=== PATIENT | male | born 1965 | race Hispanic/Latino ===

== ENCOUNTER 2018-09-17 13:54 | Emergency (ER) | payer OTHER, SELFPAY ==
--- NOTE | 2018-09-17 14:05 | Emergency Department Report ---
Blank Doc - Documentation Documentation: 53 year old male presents to ED c/o of SOB and Abdominal pain assoicated with dysuria. Also has large wound/ abscess to back and feels weak and light headed. Reports Cough and vomiting. Vision has been fading in and out for the last couple day too Plan Main side for evaluation Labs and possible CT
--- NOTE | 2018-09-17 14:32 | XRay Report ---
PROCEDURE: XR CHEST ROUTINE 2V TECHNIQUE: PA and lateral chest radiographs were obtained. HISTORY: Dyspnea COMPARISONS: None. FINDINGS: There is no visible pulmonary consolidation. No evidence of pneumothorax. No radiographically visible pleural effusion. Cardiac silhouette size is normal without vascular congestion. No visible acute displaced fracture in the regional skeleton. IMPRESSION: No acute cardiopulmonary disease in the visualized chest. This document is electronically signed by Christiano Javier MD., September 17 2018 02:30:46 PM ET
[2018-09-17 14:47] LABS: Basophils # (Auto) 0.1 K/mm3 (0.0-0.1); Basophils % (Auto) 0.7 % (0.0-1.8); Eosinophils # (Auto) 0.2 K/mm3 (0.0-0.4); Eosinophils % (Auto) 1.7 % (0.0-4.3); Hematocrit 42.5 % (35.5-45.6); Hemoglobin 14.1 gm/dl (11.8-15.2); Lymphocytes # (Auto) 1.6 K/mm3 (1.2-5.4); Lymphocytes % (Auto) 10.7 % (13.4-35.0); Mean Corpuscular HGB Conc 33 % (32-34); Mean Corpuscular Volume 85 fl (84-94); Monocytes # (Auto) 1.8 K/mm3 (0.0-0.8); Monocytes % (Auto) 12.6 % (0.0-7.3); Platelet Count 210 K/mm3 (140-440); Red Blood Count 5.01 M/mm3 (3.65-5.03); Red Cell Distribution Width 13.4 % (13.2-15.2)
[2018-09-17 14:59] LABS: Alanine Aminotransferase 218 units/L (7-56); Albumin 2.8 g/dL (3.9-5); BUN/Creatinine Ratio 20; Blood Urea Nitrogen 16 mg/dL (9-20); Calcium 9.3 mg/dL (8.4-10.2); Hemolysis Index 6
[2018-09-17 15:07] LABS: Bilirubin,Urine NEG (Negative); Blood,Urine NEG (Negative); Color,Urine Yellow (Yellow); Mucus,Urine FEW /HPF; Protein,Urine <15 mg/dL mg/dL (Negative); Urobilinogen,Urine < 2.0 mg/dL (<2.0)
[2018-09-17] MEDS ORDERED: ZOFRAN IV ONE (15:11)
[2018-09-17] MEDS ORDERED: NACL 0.9% 1000 ML 1,000 ML IV ONE ×2 (15:11→19:36)
[2018-09-17] MEDS ORDERED: SUBLIMAZE IV ONE (15:11)
[2018-09-17] MEDS ORDERED: ROCEPHIN/NS 1 GM/50 ML 1 GM/50 ML BAG IV ONE (15:15)
--- NOTE | 2018-09-17 15:23 | Emergency Department Report ---
HPI - General Chief Complaint: Skin/Abscess/Foreign Body Time Seen by Provider: 09/17/18 14:02 - HPI HPI: Room 3 The patient is a 53-year-old male presenting with chief complaint back pain, headache and chest pain. Patient states for one week he's had a headache and intermittent substernal chest pain described as sharp in nature and associated shortness of breath, nausea/vomiting and diaphoresis. The patient states over the past 3 days has noticed an abscess developing on his back and states that it has drained. The patient is unaware of the color. Patient admits to subjective fever. Location: [See above] Duration: [See above] Quality: [See above] Severity: [See above] Modifying factors: [see above] Context: [see above] Mode of transportation: [not driving] ED Past Medical Hx - Past Medical History Hx Hypertension: Yes Hx Diabetes: Yes - Surgical History Past Surgical History?: No - Family History Family history: no significant - Social History Smoking Status: Never Smoker Substance Use Type: None ED Review of Systems ROS: Stated complaint: BOIL ON BACK Other details as noted in HPI Constitutional: diaphoresis, fever Eyes: denies: eye pain ENT: denies: throat pain Respiratory: shortness of breath Cardiovascular: chest pain Endocrine: no symptoms reported Gastrointestinal: nausea, vomiting Genitourinary: denies: dysuria Musculoskeletal: back pain Skin: lesions, change in color Neurological: headache Physical Exam - Physical Exam Vital Signs: Vital Signs 09/17/18 14:42 Pulse Rate 100 H Respiratory 17 Rate Blood Pressure 130/87 [Right] O2 Sat by Pulse 100 Oximetry Physical Exam: GENERAL: The patient is well-developed well-nourished male lying on stretcher not appear to be in acute distress. [] HEENT: Normocephalic. Atraumatic. Extraocular motions are intact. Patient has moist mucous membranes. NECK: Supple. Trachea midline CHEST/LUNGS: Clear to auscultation. There is no respiratory distress noted. HEART/CARDIOVASCULAR: Regular. There is no tachycardia. There is no gallop rub or murmur. ABDOMEN: Abdomen is soft, nontender. Patient has normal bowel sounds. There is no abdominal distention. SKIN: There is a large region of induration and erythema overlying the right upper back. There is no diaphoresis. NEURO: The patient is awake, alert, and oriented. The patient is not cooperative with neurologic exam. The patient has normal speech MUSCULOSKELETAL: There is no evidence of acute injury. ED Course Vital Signs 09/17/18 14:42 Pulse Rate 100 H Respiratory 17 Rate Blood Pressure 130/87 [Right] O2 Sat by Pulse 100 Oximetry - I & D Upper Back Site: upper back Blade Size: 11 I & D Procedure: betadine prep, gauze wick placed Progress: Approximately 1.5 cm incision made over abscess. Loculations were broken with adhesions. Approximately 25 miles of cherry colored purulent discharge expressed. Sample taken for culture. Wound irrigated copiously with normal saline. 1 inch iodoform gauze used to pack the wound. Sterile dressing placed. Patient tolerated well ED Medical Decision Making - Lab Data Result diagrams: 09/17/18 14:23 09/17/18 14:23 Laboratory Tests 09/17/18 09/17/18 09/17/18 14:23 14:23 14:23 WBC 14.6 H RBC 5.01 Hgb 14.1 Hct 42.5 MCV 85 MCH 28 MCHC 33 RDW 13.4 Plt Count 210 Lymph % (Auto) 10.7 L [place] % (Auto) 12.6 H Eos % (Auto) 1.7 Baso % (Auto) 0.7 Lymph # 1.6 [place] # 1.8 H Eos # 0.2 Baso # 0.1 Seg Neutrophils % 74.3 H Seg Neutrophils # 10.9 H VBG pH Sodium 130 L Potassium 4.2 Chloride 90.8 L Carbon Dioxide 26 Anion Gap 17 BUN 16 Creatinine 0.8 Estimated GFR > 60 BUN/Creatinine Ratio 20 Glucose 313 H Calcium 9.3 Total Bilirubin 0.40 AST 213 H ALT 218 H Alkaline Phosphatase 171 H Troponin T < 0.010 Total Protein 7.4 Albumin 2.8 L Albumin/Globulin Ratio 0.6 Lipase 21 Urine Color Urine Turbidity Urine pH Ur Specific [place] Urine Protein Urine Glucose (UA) Urine Ketones Urine Blood Urine Nitrite Urine Bilirubin Urine Urobilinogen Ur Leukocyte Esterase Urine WBC (Auto) Urine RBC (Auto) U Epithel Cells (Auto) Urine Mucus 09/17/18 09/17/18 09/17/18 14:42 16:07 16:07 WBC RBC Hgb Hct MCV MCH MCHC RDW Plt Count Lymph % (Auto) [place] % (Auto) Eos % (Auto) Baso % (Auto) Lymph # [place] # Eos # Baso # Seg Neutrophils % Seg Neutrophils # VBG pH 7.318 L Sodium Potassium Chloride Carbon Dioxide Anion Gap BUN Creatinine Estimated GFR BUN/Creatinine Ratio Glucose Calcium Total Bilirubin AST ALT Alkaline Phosphatase Troponin T < 0.010 Total Protein Albumin Albumin/Globulin Ratio Lipase Urine Color Yellow Urine Turbidity Slightly-cloudy Urine pH 5.0 Ur Specific [place] 1.035 H Urine Protein <15 mg/dl Urine Glucose (UA) >=500 Urine Ketones Tr Urine Blood Neg Urine Nitrite Neg Urine Bilirubin Neg Urine Urobilinogen < 2.0 Ur Leukocyte Esterase Neg Urine WBC (Auto) 1.0 Urine RBC (Auto) 3.0 U Epithel Cells (Auto) < 1.0 Urine Mucus Few - EKG Data -: EKG Interpreted by Me EKG shows normal: sinus rhythm Rate: tachycardia (105 bpm) - EKG Data When compared to previous EKG there are: previous EKG unavailable Interpretation: other (frequent PVCs) - Radiology Data Radiology results: report reviewed (CT head, chest x-ray), image reviewed (CT head, chest x-ray) interpreted by me: Chest x-ray-no focal infiltrates, no pneumothorax [address] [address] Cat Scan Report Signed Patient: BEATRICE JOHNSON MR#: [id number] : 1965 Acct:[id number] Age/Sex: 53 / M ADM Date: 09/17/18 Loc: ED [address] Dr: Ordering Physician: DENISE KIMBALL MD Date of Service: 09/17/18 Procedure(s): CT head/brain wo con Accession Number(s): [id number] cc: DENISE KIMBALL MD PROCEDURE: CT HEAD/BRAIN WO CON TECHNIQUE: A noncontrast CT of the head was performed. HISTORY: headache COMPARISON: None FINDINGS: There is no acute intracranial hemorrhage. There is no brain edema, mass effect or midline shift. Ventricular size is appropriate for brain volume. There is no abnormal extra- axial fluid collections. There is no skull fracture seen. The visualized paranasal sinuses are clear. IMPRESSION: There is no acute intracranial abnormality seen. This document is electronically signed by Maria Isabel Alexander MD., September 17 2018 04:01:39 PM ET Transcribed By: ZAHEER Dictated By: MARIA ISABEL ALEXANDER MD Electronically Authenticated By: MARIA ISABEL ALEXANDER MD Signed Date/Time: 09/17/18 1604 DD/ 1547 TD/TT: 09/17/18 1549 - Differential Diagnosis ACS, abscess, cellulitis, Critical care attestation.: If time is entered above; I have spent that time in minutes in the direct care of this critically ill patient, excluding procedure time. ED Disposition Clinical Impression: Chest pain, Headache, DKA (diabetic ketoacidoses), Abscess, Frequent PVCs Disposition: OP ADMIT IP TO THIS HOSP Is pt being admited?: Yes Does the pt Need Aspirin: Yes Condition: Fair Instructions: Chest Pain (ED), Diabetic Ketoacidosis (ED) Referrals: [facility] MD AUREA [Primary Care Provider] - 3-5 Days Time of Disposition: 18:57 (hospitalist paged (Dr Johnson))
--- NOTE | 2018-09-17 16:04 | Cat Scan Report ---
PROCEDURE: CT HEAD/BRAIN WO CON TECHNIQUE: A noncontrast CT of the head was performed. HISTORY: headache COMPARISON: None FINDINGS: There is no acute intracranial hemorrhage. There is no brain edema, mass effect or midline shift. Ventricular size is appropriate for brain volume. There is no abnormal extra-axial fluid collections. There is no skull fracture seen. The visualized paranasal sinuses are clear. IMPRESSION: There is no acute intracranial abnormality seen. This document is electronically signed by Maria Isabel Cabezas MD., September 17 2018 04:01:39 PM ET
[2018-09-17] MEDS ORDERED: ASPIRIN ONE (16:23)
[2018-09-17] MEDS ORDERED: XYLOCAINE 1%/ EPI 1:100,000 INFILTRATI ONE (18:19)
[2018-09-17] MEDS ORDERED: NACL 0.9% 500 ML IR ONE (18:22)
[2018-09-17] MEDS ORDERED: ASPIRIN PO ONE (18:23)
[2018-09-17] MEDS ORDERED: NORCO 5/325 PO ONE (18:55)
--- NOTE | 2018-09-17 19:45 | Event Note ---
Date: 09/17/18 53 YO Male with ETOH Hepatitis, with right back abscess. Pt underwent I&D in ED with packing, Pt medically optimized and back to usual state of health. Pt discharged home and instructed to f/u pcp 3-5 days. Pt discharged home with oral antibiotic therapy. Pt discharged with home health/wound care. 09/17/18 14:42 Pulse Rate 100 H Respiratory 17 Rate Blood Pressure 130/87 [Right] O2 Sat by Pulse 100 Oximetry Physical Exam: GENERAL: The patient is well-developed well-nourished male lying on stretcher not appear to be in acute distress. [] HEENT: Normocephalic. Atraumatic. Extraocular motions are intact. Patient has moist mucous membranes. NECK: Supple. Trachea midline CHEST/LUNGS: Clear to auscultation. There is no respiratory distress noted. HEART/CARDIOVASCULAR: Regular. There is no tachycardia. There is no gallop rub or murmur. ABDOMEN: Abdomen is soft, nontender. Patient has normal bowel sounds. There is no abdominal distention. SKIN: right back wound:CDI, No signs of infection. There is no diaphoresis. NEURO: The patient is awake, alert, and oriented. The patient is not cooperative with neurologic exam. The patient has normal speech MUSCULOSKELETAL: There is no evidence of acute injury.
[2018-09-17 20:59] VITALS: BP 148/80
== END 2018-09-17 20:59 | disposition home or self-care (01) ==
LOC: ED 13:54
DX: E11.10 Type 2 diabetes mellitus with ketoacidosis without coma (principal); I10 Essential (primary) hypertension; L02.212 Cutaneous abscess of back [any part, except buttock and flank]
CPT/HCPCS: 10060; 36415; 70450; 71046; 80053; 81001; 82805; 83690; 84484; 85025; 87040; 87076; 87116; 87186; 93005; 93010; 96365; 96375; 99284; J0696; J2405; J3010; J7030

== ENCOUNTER 2018-09-21 12:49 | Emergency (ER) | payer OTHER, SELFPAY ==
[2018-09-21 13:02] VITALS: BP 118/80
--- NOTE | 2018-09-21 13:08 | Emergency Department Report ---
ED Recheck HPI - General Chief Complaint: Laceration/Recheck/Suture Stated Complaint: WOUND CHECK Time Seen by Provider: 09/21/18 13:04 Source: patient Mode of arrival: Ambulatory Limitations: No Limitations - History of Present Illness Initial Comments: This is a 53-year-old male nontoxic well in appearnce presents with abscess packing removal. Patient stated has I/D done 4 days ago. Denies any fever, chills, headache, nausea, vomiting, chest pain, shortness of breathe, numbness, or tingling. Patient denies any allergies. Patient stated is still taking his antibiotics. MD Complaint: wound re-check, other (packing removal) -: days(s) (4) Initial Visit For: abscess Returns Today for: wound recheck Symptoms Since Prior Visit: no new symptoms, improved Associated Symptoms: none. denies: fever, chills, chest pain, shortness of breath, rash, malaise, nasuea, abdominal pain - Related Data Previous Rx's Medication Instructions Recorded Last Taken Type Sulfamethoxazole/Trimethoprim 1 each PO BID #20 tablet 09/17/18 Unknown Rx [Bactrim DS TAB] Allergies Allergy/AdvReac Type Severity Reaction Status Date / Time No Known Allergies Allergy Verified 09/21/18 12:50 ED Review of Systems ROS: Stated complaint: WOUND CHECK Other details as noted in HPI Constitutional: denies: chills, fever Eyes: denies: eye pain, eye discharge, vision change ENT: denies: ear pain, throat pain Respiratory: denies: cough, shortness of breath, wheezing Cardiovascular: denies: chest pain, palpitations Endocrine: no symptoms reported Gastrointestinal: denies: abdominal pain, nausea, diarrhea Genitourinary: denies: urgency, dysuria Musculoskeletal: denies: back pain, joint swelling, arthralgia Skin: denies: rash, lesions Neurological: denies: headache, weakness, paresthesias Psychiatric: denies: anxiety, depression Hematological/Lymphatic: denies: easy bleeding, easy bruising ED Past Medical Hx - Past Medical History Hx Hypertension: Yes Hx Diabetes: Yes - Social History Smoking Status: Never Smoker Substance Use Type: None - Medications Home Medications: Home Medications Medication Instructions Recorded Confirmed Last Taken Type Sulfamethoxazole/Trimethoprim 1 each PO BID #20 tablet 09/17/18 Unknown Rx [Bactrim DS TAB] ED Physical Exam - General Limitations: No Limitations General appearance: alert, in no apparent distress - Head Head exam: Present: atraumatic, normocephalic - Extremities Exam Extremities exam: Present: normal inspection, full ROM - Back Exam Back exam: Present: normal inspection, full ROM, other (abscess with dressing and packing. no swelling. Some draiange. ) - Neurological Exam Neurological exam: Present: alert, oriented X3 - Psychiatric Psychiatric exam: Present: normal affect, normal mood - Skin Skin exam: Present: warm, dry, intact, normal color. Absent: rash ED Course Vital Signs 09/21/18 13:01 Temperature 98.1 F Pulse Rate 89 Respiratory 18 Rate Blood Pressure 118/80 O2 Sat by Pulse 97 Oximetry - Reevaluation(s) Reevaluation #1: 09/21/18 13:06 Patient is speaking in full sentences with no signs of distress noted. ED Recheck MDM - Medical Decision Making Packing removed. PAtient tolerated well. Area has been irrigated with sterile saline and a sterile dressing applied. Patient was educated on proper wound care. Patient was instructed to Follow-up with a primary care doctor in 3-5 days or if symptoms worsen and continue return to emergency room as soon as possible. At time of discharge, the patient does not seem toxic or ill in appearance. No acute signs of distress noted. Patient agrees to discharge treatment plan of care. No further questions noted by the patient. Critical care attestation.: If time is entered above; I have spent that time in minutes in the direct care of this critically ill patient, excluding procedure time. ED Disposition Clinical Impression: Abscess packing removal Disposition: DC-01 TO HOME OR SELFCARE Is pt being admited?: No Does the pt Need Aspirin: No Condition: Stable Instructions: Abscess (ED) Additional Instructions: Follow-up with a primary care doctor in 3-5 days or if symptoms worsen and continue return to emergency room as soon as possible. Referrals: PRIMARY CARE, [Referring] - 3-5 Days BENOIT MACHADO MD [Staff Physician] - 3-5 Days [facility] [Outside] - 3-5 Days [facility] [Outside] - 3-5 Days
== END 2018-09-21 13:20 | disposition home or self-care (01) ==
LOC: ED 12:49
DX: Z48.00 Encounter for change or removal of nonsurgical wound dressing (principal); I10 Essential (primary) hypertension; E11.9 Type 2 diabetes mellitus without complications

== ENCOUNTER 2018-10-04 17:02 | Inpatient (IN) | payer OTHER, SELFPAY ==
--- NOTE | 2018-10-04 17:29 | Emergency Department Report ---
Blank Doc - Documentation Documentation: This is a 53-year-old male that presents with SOB and chest pain. Also stated has some n/v. This initial assessment/diagnostic orders/clinical plan/treatment(s) is/are subject to change based on patient's health status, clinical progression and re- assessment by fellow clinical providers in the ED. Further treatment and workup at subsequent clinical providers discretion. Patient/guardians urged not to elope from the ED as their condition may be serious if not clinically assessed and managed. Initial orders include: 1- Patient sent to main ed for further evaluation and treatment 2- labs 3- EKG 4- CXR
--- NOTE | 2018-10-04 18:03 | XRay Report ---
CHEST 2 VIEWS INDICATION / CLINICAL INFORMATION: Chest Pain. Shortness of breath for 2 weeks. Abscess with bandage on upper back/neck. COMPARISON: 09/17/2018. FINDINGS: SUPPORT DEVICES: None. HEART / MEDIASTINUM: The heart size and pulmonary vasculature are normal. LUNGS / PLEURA: No significant pulmonary or pleural abnormality. No pneumothorax. ADDITIONAL FINDINGS: There are several bubbles of gas in the right lower neck which are new and presu mably related to the patient's bandage. IMPRESSION: 1. No acute intrathoracic disease. 2. Soft tissue gas in the right lower neck is presumably related to the patient's bandage and recent abscess drainage. Signer Name: Robby Crabtree MD Signed: 10/04/2018 4:59 PM Workstation Name: [id number]
[2018-10-04 19:01] LABS: Basophils # (Auto) 0.1 K/mm3 (0.0-0.1); Basophils % (Auto) 1.4 % (0.0-1.8); Eosinophils # (Auto) 0.2 K/mm3 (0.0-0.4); Eosinophils % (Auto) 2.4 % (0.0-4.3); Hematocrit 45.2 % (35.5-45.6); Hemoglobin 14.9 gm/dl (11.8-15.2); Lymphocytes # (Auto) 2.7 K/mm3 (1.2-5.4); Lymphocytes % (Auto) 38.6 % (13.4-35.0); Mean Corpuscular HGB Conc 33 % (32-34); Mean Corpuscular Volume 86 fl (84-94); Monocytes # (Auto) 0.9 K/mm3 (0.0-0.8); Monocytes % (Auto) 13.6 % (0.0-7.3); Platelet Count 313 K/mm3 (140-440); Red Blood Count 5.24 M/mm3 (3.65-5.03); Red Cell Distribution Width 14.5 % (13.2-15.2)
[2018-10-04 19:10] LABS: INR 0.99 (0.87-1.13); Partial Thromboplastin Time 28.1 Sec. (24.2-36.6)
[2018-10-04] MEDS ORDERED: ZOFRAN IV ONE (19:40)
[2018-10-04 19:54] LABS: Alanine Aminotransferase 222 units/L (7-56); Albumin 3.4 g/dL (3.9-5); BUN/Creatinine Ratio 20; Blood Urea Nitrogen 16 mg/dL (9-20); Calcium 9.8 mg/dL (8.4-10.2); Hemolysis Index 12
--- NOTE | 2018-10-04 21:29 | Cat Scan Report ---
CTA CHEST WITH IV CONTRAST INDICATION: chest pain, sob. TECHNIQUE: Axial CT images were obtained through the chest after injection of 100 cc of IV Omnipaque 350 IV cont rast. 3 plane MIP reconstructions were produced. All CT scans at this location are performed using CT dose reduction for ALARA by means of automated exposure control. COMPARISON: None available. FINDINGS: Pulmonary Arteries: No pulmonary emboli. Lungs: No significant abnormality. Trachea and Bronchi: No significant abnormality. Heart and Pericardium: No significant abnormality. Vasculature: No significant abnormality. Lymphatics: No lymphadenopathy. Additional Findings: There is a skin wound in the upper back posterior to the right trapezius muscle belly with some adjacent subcutaneous air. There is no focal fluid collection. Upper Abdomen: No acute findings. Skeletal Structures: No significant osseous abnormality. IMPRESSION: 1. No CT evidence for pulmonary embolism. 2. No acute pulmonary findings. 3. Skin wound with subcutaneous edema and air in the right upper back without discrete fluid collecti on. Recommend correlation for recent trauma. Signer Name: Jono Reeves MD Signed: 10/04/2018 8:25 PM Workstation Name: [id number]
--- NOTE | 2018-10-04 21:32 | Cat Scan Report ---
CT ABDOMEN AND PELVIS WITH CONTRAST HISTORY: Abdominal pain COMPARISON: None TECHNIQUE: Routine abdominal and pelvic CT exam performed following intravenous contrast administrat ion.. All CT scans at this location are performed using CT dose reduction for ALARA by means of autom ated exposure control. FINDINGS: CT ABDOMEN: Lung Bases: No significant abnormality. Liver: No significant abnormality. Biliary: No significant abnormality. Spleen: No significant abnormality. Unenlarged. Pancreas: No significant abnormality. Adrenals: No significant abnormality. Kidneys: No stones or obstruction. Multiple simple appearing left renal cyst measuring up to 3 cm. Lymphatics: No lymphadenopathy. Vasculature: Atherosclerotic but nonaneurysmal abdominal aorta. Bowel/Peritoneum: No significant abnormality. No free air. No free fluid. Normal appendix. CT PELVIC: : No significant abnormality. Lymphatics: No lymphadenopathy. Osseous Structures: No aggressive appearing osseous lesions. There is a chronic appearing L1 compress ion fracture with about 30% to body height loss. Additional Findings: None IMPRESSION: 1. No acute findings. 2. Chronic appearing L1 compression fracture. Signer Name: Jono Reeves MD Signed: 10/04/2018 8:27 PM Workstation Name: [id number]
[2018-10-04] MEDS ORDERED: NACL 0.9% 1000 ML 1,000 ML IV ONE (21:36)
--- NOTE | 2018-10-04 22:20 | Emergency Department Report ---
ED Shortness of Breath HPI - General Chief Complaint: Dyspnea/Respdistress Stated Complaint: DIABETIC/SOB/CHEST PAIN/VOMITTING Time Seen by Provider: 10/04/18 17:27 Source: patient Mode of arrival: Ambulatory Limitations: No Limitations - History of Present Illness Initial Comments: 53-year-old male with history of diabetes, presents to the ED, with generalized weakness, shortness of breath, not feeling well. He also had upper back wound that was drained in the ED on 09/17/2018, he states no improvement of symptoms, states the wound is still draining, still painful, still red. No fever, chills or night sweats. States glucose at home has been running high between 300-500. States decrease of appetite, rates his symptoms as severe in severity. MD Complaint: shortness of breath Onset/Timin -: Gradual, week(s) - Related Data Previous Rx's Medication Instructions Recorded Last Taken Type Sulfamethoxazole/Trimethoprim 1 each PO BID #20 tablet 09/17/18 Unknown Rx [Bactrim DS TAB] Allergies Allergy/AdvReac Type Severity Reaction Status Date / Time No Known Allergies Allergy Verified 09/21/18 12:50 ED Review of Systems ROS: Stated complaint: DIABETIC/SOB/CHEST PAIN/VOMITTING Other details as noted in HPI Comment: All other systems reviewed and negative Genitourinary: denies: urgency Skin: rash, lesions Neurological: denies: headache ED Past Medical Hx - Past Medical History Hx Hypertension: Yes Hx Diabetes: Yes - Social History Smoking Status: Never Smoker Substance Use Type: None - Medications Home Medications: Home Medications Medication Instructions Recorded Confirmed Last Taken Type Sulfamethoxazole/Trimethoprim 1 each PO BID #20 tablet 09/17/18 Unknown Rx [Bactrim DS TAB] ED Physical Exam - General Limitations: No Limitations General appearance: alert, in no apparent distress - Head Head exam: Present: atraumatic, normocephalic - Eye Eye exam: Present: normal appearance, PERRL, EOMI Pupils: Present: normal accommodation - ENT ENT exam: Present: normal exam, normal orophraynx - Neck Neck exam: Present: normal inspection, tenderness - Respiratory Respiratory exam: Present: normal lung sounds bilaterally - Cardiovascular Cardiovascular Exam: Present: regular rate - Neurological Exam Neurological exam: Present: alert, altered, oriented X3 - Skin Skin exam: Present: other (upper back abscess, still draining) ED Course Vital Signs 10/04/18 10/04/18 10/04/18 17:28 18:35 18:46 Temperature 98.8 F Pulse Rate 118 H 108 H 105 H Respiratory 16 22 22 Rate Blood Pressure 134/96 126/91 126/91 O2 Sat by Pulse 98 96 96 Oximetry 10/04/18 10/04/18 10/04/18 18:50 18:51 19:30 Temperature Pulse Rate 113 H 99 H Respiratory 14 20 Rate Blood Pressure 146/94 O2 Sat by Pulse 96 Oximetry 10/04/18 10/04/18 20:00 20:30 Temperature Pulse Rate 97 H 91 H Respiratory 21 15 Rate Blood Pressure 145/103 131/84 O2 Sat by Pulse 99 Oximetry ED Medical Decision Making - Lab Data Result diagrams: 10/04/18 18:39 10/04/18 18:39 - Medical Decision Making 53-year-old male with upper back abscess, that fell outpatient treatment,, patient given vancomycin, normal saline, blood cultures drawn, wound cultures drawn, surgery consulted, insulin was given for his hyperglycemia, will be admitted for further treatment.. Critical care attestation.: If time is entered above; I have spent that time in minutes in the direct care of this critically ill patient, excluding procedure time. 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
[2018-10-04] MEDS ORDERED: HumuLIN R IV ONE (22:41)
[2018-10-04] MEDS ORDERED: VANCOMYCIN/NS 1 GM/250 ML 1 GM/250 ML BAG IV ONE (23:00)
[2018-10-04] MEDS ORDERED: HumuLIN R ONE (23:55)
[2018-10-05] MEDS ORDERED: D50W (25GM) Syringe IV PRN (01:38)
[2018-10-05] MEDS ORDERED: VANCOMYCIN PHARMACY TO DOSE IV SCH (02:00)
--- NOTE | 2018-10-05 02:39 | History and Physical Report ---
History of Present Illness Date of admission: 10/04/18 23:24 Chief complaint: I have pus draining from my back History of present illness: 53-year-old man with history of hypertension and diabetes. The patient does not have insurance, has trouble getting his medications at times. He was seen in the ER on September 17 for a upper back abscess. He had an I&D performed in the ER he was sent home on some oral antibiotics. He returns now with increased purulent drainage from his back, he has a small wound on his upper back and he has been draining copious amounts of pus, pus has been foul smelling. The drainage has been so much that he has been off his clothes his bed sheets and everywhere he has sat only down on. His mother is at the bedside and stated that he was unable to manage the drainage with dressings. He also notes that his sugars out of control, but the patient admits that his sugars are never really well controlled. He is also complaining of pain and swelling to the skin surrounding the wound on his back Past History Past Medical History: diabetes, hypertension Past Surgical History: Other (incision and drainage of upper back on 09/17) Social history: no significant social history. denies: smoking, alcohol abuse, prescription drug abuse Family history: diabetes Medications and Allergies Allergies Allergy/AdvReac Type Severity Reaction Status Date / Time No Known Allergies Allergy Verified 09/21/18 12:50 Home Medications Medication Instructions Recorded Confirmed Last Taken Type Sulfamethoxazole/Trimethoprim 1 each PO BID #20 tablet 09/17/18 Unknown Rx [Bactrim DS TAB] Active Meds: Active Medications Dextrose (D50w (25gm) Syringe) 50 ml IV PRN PRN PRN Reason: Hypoglycemia Vancomycin HCl (Vancomycin/Ns 1 Gm/250 Ml) 1 gm in 250 mls @ 250 mls/hr IV Q12HR [facility] Insulin Glargine (Lantus) 10 units SUB-Q QHS NATALIE Insulin Human Lispro (Humalog) 0 unit SUB-Q ACHS NATALIE; Protocol Lisinopril (Zestril) 10 mg PO QDAY NATALIE Review of Systems All systems: negative Constitutional: fatigue, weakness Eyes: bilateral: blurred vision (at times) Ears, nose, mouth and throat: no ear pain Cardiovascular: no chest pain Respiratory: no cough with sputum Gastrointestinal: no abdominal pain Genitourinary Male: no dysuria Rectal: no pain Musculoskeletal: no neck stiffness Integumentary: no rash Neurological: no head injury Psychiatric: no anxiety Endocrine: no cold intolerance Hematologic/Lymphatic: no easy bruising Allergic/Immunologic: no urticaria Exam - Constitutional Vitals: Temp Pulse Resp BP Pulse Ox 98.8 F 95 H 19 142/78 96 10/04/18 17:28 10/04/18 23:30 10/04/18 23:30 10/04/18 23:59 10/04/18 23:30 General appearance: Present: no acute distress, well-nourished - EENT Eyes: Present: PERRL ENT: hearing intact, clear oral mucosa - Neck Neck: Present: supple, normal ROM - Respiratory Respiratory effort: normal Respiratory: bilateral: CTA - Cardiovascular Heart Sounds: Present: S1 & S2. Absent: rub, click - Extremities Extremities: pulses symmetrical, No edema Peripheral Pulses: within normal limits - Abdominal General gastrointestinal: Present: soft, non-tender, non-distended, normal bowel sounds Male genitourinary: Present: normal - Integumentary Integumentary: Present: clear, warm, dry (induration and tenderness of upper back), erythema (on upper back there is an area of erythema that is 4 cm x 5 cm. In the middle of which there is a finger point wound which is draining fuad pus) - Musculoskeletal Musculoskeletal: gait normal, strength equal bilaterally - Psychiatric Psychiatric: appropriate mood/affect, intact judgment & insight - Neurologic Neurologic: CNII-XII intact, moves all extremities Results - Labs CBC & Chem 7: 10/04/18 18:39 10/04/18 18:39 Labs: Laboratory Last Values WBC 7.0 K/mm3 (4.5-11.0) 10/04/18 18:39 RBC 5.24 M/mm3 (3.65-5.03) H 10/04/18 18:39 Hgb 14.9 gm/dl (11.8-15.2) 10/04/18 18:39 Hct 45.2 % (35.5-45.6) 10/04/18 18:39 MCV 86 fl (84-94) 10/04/18 18:39 MCH 29 pg (28-32) 10/04/18 18:39 MCHC 33 % (32-34) 10/04/18 18:39 RDW 14.5 % (13.2-15.2) 10/04/18 18:39 Plt Count 313 K/mm3 (140-440) 10/04/18 18:39 Lymph % (Auto) 38.6 % (13.4-35.0) H 10/04/18 18:39 [place] % (Auto) 13.6 % (0.0-7.3) H 10/04/18 18:39 Eos % (Auto) 2.4 % (0.0-4.3) 10/04/18 18:39 Baso % (Auto) 1.4 % (0.0-1.8) 10/04/18 18:39 Lymph # 2.7 K/mm3 (1.2-5.4) 10/04/18 18:39 [place] # 0.9 K/mm3 (0.0-0.8) H 10/04/18 18:39 Eos # 0.2 K/mm3 (0.0-0.4) 10/04/18 18:39 Baso # 0.1 K/mm3 (0.0-0.1) 10/04/18 18:39 Seg Neutrophils % 44.0 % (40.0-70.0) 10/04/18 18:39 Seg Neutrophils # 3.1 K/mm3 (1.8-7.7) 10/04/18 18:39 PT 12.8 Sec. (12.2-14.9) 10/04/18 18:39 INR 0.99 (0.87-1.13) 10/04/18 18:39 APTT 28.1 Sec. (24.2-36.6) 10/04/18 18:39 289.07 ng/mlDDU (0-234) H 10/04/18 20:00 Sodium 130 mmol/L (137-145) L 10/04/18 18:39 Potassium 4.8 mmol/L (3.6-5.0) 10/04/18 18:39 Chloride 92.9 mmol/L (98-107) L 10/04/18 18:39 Carbon Dioxide 25 mmol/L (22-30) 10/04/18 18:39 17 mmol/L 10/04/18 18:39 BUN 16 mg/dL (9-20) 10/04/18 18:39 0.8 mg/dL (0.8-1.5) 10/04/18 18:39 Estimated GFR > 60 ml/min 10/04/18 18:39 20 % 10/04/18 18:39 Glucose 450 mg/dL (75-100) H 10/04/18 18:39 Calcium 9.8 mg/dL (8.4-10.2) 10/04/18 18:39 0.30 mg/dL (0.1-1.2) 10/04/18 18:39 AST 209 units/L (5-40) H 10/04/18 18:39 ALT 222 units/L (7-56) H 10/04/18 18:39 214 units/L (35-129) H 10/04/18 18:39 < 0.010 ng/mL (0.00-0.029) 10/04/18 18:39 < 0.010 ng/mL (0.00-0.029) 10/04/18 18:39 8.2 g/dL (6.3-8.2) 10/04/18 18:39 3.4 g/dL (3.9-5) L 10/04/18 18:39 0.7 % 10/04/18 18:39 99 units/L (13-60) H 10/04/18 18:39 - Imaging and Cardiology CT scan - chest: image reviewed (evidence of cellulitis and upper back, with some gas formation) Assessment and Plan Assessment and plan: 53-year-old man with history of hypertension and diabetes who presents with recurrent upper back pain related/abscess Upper back cellulitis/abscess Cultures from previous ER visit on 09/17 reviewed, it was staph aureus which was resistant to penicillin and erythromycin -Patient placed on vancomycin, surgery consulted to perform I&D, ID consult, awaiting culture results Uncontrolled type 2 diabetes with persistent hyperglycemia Insulin and IV fluid given in the ER, obtain A1c, sliding scale insulin Hypertension Start patient on an LOREN inhibitor DVT prophylaxis with Lovenox
[2018-10-05] MEDS ORDERED: PERCOCET 5/325 PO PRN (02:46)
[2018-10-05] MEDS ORDERED: SODIUM CHLORIDE FLUSH SYRINGE 10 ML IV PRN (02:47)
[2018-10-05] MEDS ORDERED: ZOFRAN IV PRN (02:47)
[2018-10-05] MEDS ORDERED: TYLENOL PO PRN (02:47)
[2018-10-05] MEDS ORDERED: NACL 0.45% 1000 ML 1,000 ML IV SCH (03:00)
[2018-10-05] MEDS: HumaLOG SUB-Q SCH ×8 (09:09→22:39)
--- NOTE | 2018-10-05 09:47 | Consultation ---
History of Present Illness Consult date: 10/05/18 Reason for consult: wound care Requesting physician: REI RAWLS Chief complaint: back abscess for 6 weeks - History of present illness History of present illness: 53yo M with history of diabetes was seen in the ER on September 17 for a upper back abscess. He had an I&D performed in the ER he was sent home on some oral antibiotics. He returns now with increased purulent drainage from his back, he has a small wound on his upper back and he has been draining copious amounts of pus, pus has been foul smelling. He reports that he does not have help at home for wound care. He is also complaining of pain and swelling to the skin surrounding the wound on his back. Abscess has been present for at least 6 weeks. Past History Past Medical History: diabetes, hypertension Past Surgical History: Other (incision and drainage of upper back on 09/17) Social history: no significant social history. denies: smoking, alcohol abuse, prescription drug abuse Family history: diabetes Medications and Allergies Allergies Allergy/AdvReac Type Severity Reaction Status Date / Time No Known Allergies Allergy Verified 09/21/18 12:50 Home Medications Medication Instructions Recorded Confirmed Last Taken Type Sulfamethoxazole/Trimethoprim 1 each PO BID #20 tablet 09/17/18 Unknown Rx [Bactrim DS TAB] Active Meds: Active Medications Acetaminophen (Tylenol) 650 mg PO Q4H PRN PRN Reason: Pain MILD(1-3)/Fever >100.5/ELMORE Dextrose (D50w (25gm) Syringe) 50 ml IV PRN PRN PRN Reason: Hypoglycemia Enoxaparin Sodium (Lovenox) 40 mg SUB-Q QDAY@2200 NATALIE Hydromorphone HCl (Dilaudid) 0.5 mg IV Q3H PRN PRN Reason: Pain , Severe (7-10) Vancomycin HCl (Vancomycin/Ns 1 Gm/250 Ml) 1 gm in 250 mls @ 250 mls/hr IV Q12HR [facility] Insulin Glargine (Lantus) 10 units SUB-Q QHS [facility] Insulin Human Lispro (Humalog) 0 unit SUB-Q [facility]; Protocol Last Admin: 10/05/18 09:09 Dose: Not Given Documented by: Insulin Human Lispro (Humalog) 10 unit SUB-Q [facility]; Protocol Lisinopril (Zestril) 10 mg PO QDAY [facility] Ondansetron HCl (Zofran) 4 mg IV Q8H PRN PRN Reason: Nausea And Vomiting Oxycodone/Acetaminophen (Percocet 5/325) 1 tab PO Q6H PRN PRN Reason: Pain, Moderate (4-6) Last Admin: 10/05/18 03:26 Dose: 1 tab Documented by: Sodium Chloride (Sodium Chloride Flush Syringe 10 Ml) 10 ml IV BID [facility] Sodium Chloride (Sodium Chloride Flush Syringe 10 Ml) 10 ml IV PRN PRN PRN Reason: LINE FLUSH Review of Systems - Constitutional chronic pain, no fever, no chills - Cardiovascular no chest pain - Respiratory no cough - Gastrointestinal no abdominal pain, no nausea, no vomiting - Integumentary wounds, darkening of skin Exam Vital Signs Temp Pulse Resp BP Pulse Ox 98.8 F 118 H 16 134/96 98 10/04/18 17:28 10/04/18 17:28 10/04/18 17:28 10/04/18 17:28 10/04/18 17:28 - General physical appearance Positive: no distress, no pain, other (disheveled appearance) - Eyes Positive: normal occular movement - Respiratory Positive: normal expansion, normal respiratory effort, clear to auscultation - Cardiovascular Rhythm: regular - Integumentary other (large area of dark erythema present on the upper back. There is a 2 cm transverse incision in the center. The entire area is tender to the touch. It blanches.) - Neurologic Neurologic: alert and oriented to time, place and person - Psychiatric Psychiatric: appropriate mood/affect, cooperative Results - Labs 10/04/18 18:39 10/04/18 18:39 Abnormal lab results 10/04/18 10/04/18 10/04/18 Range/Units 18:39 18:39 20:00 RBC 5.24 H (3.65-5.03) M/mm3 Lymph % (Auto) 38.6 H (13.4-35.0) % [place] % (Auto) 13.6 H (0.0-7.3) % [place] # 0.9 H (0.0-0.8) K/mm3 D-Dimer 289.07 H (0-234) ng/mlDDU Sodium 130 L (137-145) mmol/L Chloride 92.9 L (98-107) mmol/L Glucose 450 H (75-100) mg/dL POC Glucose (70-105) Hemoglobin A1c (4-6) % AST 209 H (5-40) units/L ALT 222 H (7-56) units/L Alkaline Phosphatase 214 H (35-129) units/L Albumin 3.4 L (3.9-5) g/dL Lipase 99 H (13-60) units/L 10/05/18 10/05/18 Range/Units 07:15 07:57 RBC (3.65-5.03) M/mm3 Lymph % (Auto) (13.4-35.0) % [place] % (Auto) (0.0-7.3) % [place] # (0.0-0.8) K/mm3 D-Dimer (0-234) ng/mlDDU Sodium (137-145) mmol/L Chloride (98-107) mmol/L Glucose (75-100) mg/dL POC Glucose 280 H (70-105) Hemoglobin A1c 13.1 H (4-6) % AST (5-40) units/L ALT (7-56) units/L Alkaline Phosphatase (35-129) units/L Albumin (3.9-5) g/dL Lipase (13-60) units/L Diabetes panel 10/04/18 10/05/18 Range/Units 18:39 07:15 Sodium 130 L (137-145) mmol/L Potassium 4.8 (3.6-5.0) mmol/L Chloride 92.9 L (98-107) mmol/L Carbon Dioxide 25 (22-30) mmol/L BUN 16 (9-20) mg/dL Creatinine 0.8 (0.8-1.5) mg/dL Glucose 450 H (75-100) mg/dL Hemoglobin A1c 13.1 H (4-6) % Calcium 9.8 (8.4-10.2) mg/dL AST 209 H (5-40) units/L ALT 222 H (7-56) units/L Alkaline Phosphatase 214 H (35-129) units/L Total Protein 8.2 (6.3-8.2) g/dL Albumin 3.4 L (3.9-5) g/dL Calcium panel 07/02/19 Range/Units 18:39 Calcium 9.8 (8.4-10.2) mg/dL Albumin 3.4 L (3.9-5) g/dL Pituitary panel 10/04/18 Range/Units 18:39 Sodium 130 L (137-145) mmol/L Potassium 4.8 (3.6-5.0) mmol/L Chloride 92.9 L (98-107) mmol/L Carbon Dioxide 25 (22-30) mmol/L BUN 16 (9-20) mg/dL Creatinine 0.8 (0.8-1.5) mg/dL Glucose 450 H (75-100) mg/dL Calcium 9.8 (8.4-10.2) mg/dL Adrenal panel 10/04/18 Range/Units 18:39 Sodium 130 L (137-145) mmol/L Potassium 4.8 (3.6-5.0) mmol/L Chloride 92.9 L (98-107) mmol/L Carbon Dioxide 25 (22-30) mmol/L BUN 16 (9-20) mg/dL Creatinine 0.8 (0.8-1.5) mg/dL Glucose 450 H (75-100) mg/dL Calcium 9.8 (8.4-10.2) mg/dL Total Bilirubin 0.30 (0.1-1.2) mg/dL AST 209 H (5-40) units/L ALT 222 H (7-56) units/L Alkaline Phosphatase 214 H (35-129) units/L Total Protein 8.2 (6.3-8.2) g/dL Albumin 3.4 L (3.9-5) g/dL - Imaging CT scan - chest: report reviewed, image reviewed Assessment and Plan - Patient Problems (1) Abscess of upper back excluding scapular region Current Visit: Yes Status: Acute Plan to address problem: Pt stable. Chronic abscess that would benefit from formal washout. Procedure, risks, benefits discussed. Consent obtained. Will proceed to OR this morning. Please call with questions. time=30min
[2018-10-05] MEDS ORDERED: VANCOMYCIN/NS 1 GM/250 ML 1 GM/250 ML BAG IV SCH (10:00)
[2018-10-05] MEDS ORDERED: SUBLIMAZE ONE (10:29)
[2018-10-05] MEDS ORDERED: DIPRIVAN 10 MG/ML IV ONE (10:29)
[2018-10-05] MEDS ORDERED: SUBLIMAZE IV PRN (10:43)
[2018-10-05] MEDS ORDERED: DILAUDID IV PRN (10:43)
--- NOTE | 2018-10-05 10:43 | Anesthesia Consultation ---
Anesthesia Consult and Med Hx Date of service: 10/05/18 - Airway Anesthetic Teeth Evaluation: Poor ROM Head & Neck: Adequate Mental/Hyoid Distance: Adequate Mallampati Class: Class III Intubation Access Assessment: Possibly Difficult - Pulmonary Exam CTA: Yes - Cardiac Exam Cardiac Exam: RRR - Pre-Operative Health Status ASA Pre-Surgery Classification: ASA3 Proposed Anesthetic Plan: General - Pulmonary Hx Smoking: Yes (10pk yr hx. Quit 1 month ago.) Hx Respiratory Symptoms: No COPD: No Hx Sleep Apnea: No - Cardiovascular System Hx Hypertension: Yes (noncompliant with antihypertensives) Hx Heart Attack/AMI: No Hx Percutaneous Transluminal Coronary Angioplasty (PTCA): No Hx Cardia Arrhythmia: No - Central Nervous System CVA: No - Gastrointestinal Hx Gastroesophageal Reflux Disease: No - Endocrine Hx Renal Disease: No Hx Liver Disease: No Hx Insulin Dependent Diabetes: Yes (A1c 13) Hx Thyroid Disease: No - Hematic Hx Anemia: No - Other Systems Hx Obesity: No - Additional Comments Anesthesia Medical History Comments: No hx anesthetic complications. Presented with back abcess and found to be hyperglycemic. Received insulin SQ coverage for elevated glucose prior to arrival to OR. Will recheck glucose perioperatively.
[2018-10-05] MEDS ORDERED: NACL 0.9% 1000 ML 1,000 ML ONE (10:45)
--- NOTE | 2018-10-05 10:45 | Anesthesia Day of Surgery ---
Anesthesia Day of Surgery - Day of Surgery Patient Examined: Yes Patient H&P Reviewed: Yes Patient is NPO: Yes
[2018-10-05] MEDS ORDERED: PEPCID IV NR (10:46)
--- NOTE | 2018-10-05 11:02 | Progress Note ---
Assessment and Plan Assessment and plan: 53-year-old man with history of hypertension and diabetes who presents with recurrent upper back pain related/abscess Upper back cellulitis/abscess -Cultures from previous ER visit on 09/17 reviewed, it was staph aureus which was resistant to penicillin and erythromycin -Patient placed on vancomycin -Surgery took the patient down for washout Uncontrolled type 2 diabetes with persistent hyperglycemia, patient is noncompliant with treatment - Hemoglobin A1c was 13.2 - Sliding scale insulin and basal insulin, Accu-Chek, ADA diet, adjust insulin as needed Hypertension - on lisinopril Dysuria and frequency - We will do urinalysis DVT prophylaxis with Lovenox History Interval history: Patient was seen and evaluated this morning, Patient complains pain. Hospitalist Physical - Physical exam Narrative exam: Not in cardiopulmonary distress. The patient appeared well nourished and normally developed. Vital signs as documented. Head exam is unremarkable. No scleral icterus . Neck is without jugular venous distension, thyromegaly, or carotid bruits. Lungs are clear to auscultation. Cardiac exam reveals regular rate and Rhythm. First and second heart sounds normal. No murmurs, rubs or gallops. Abdominal exam reveals normal bowel sounds, no masses, no organomegaly and no aortic enlargement. Extremities are nonedematous and both femoral and pedal pulses are normal. SKin; small erythema with a central small area draining abscess INFORMATION ARCHITECT: Alert and oriented 3. No focal weakness. - Constitutional Vitals: Temp Pulse Resp BP Pulse Ox 97.2 F L 78 20 138/84 96 10/05/18 06:44 10/05/18 06:44 10/05/18 06:44 10/05/18 06:44 10/05/18 06:44 General appearance: Present: no acute distress, well-nourished Results - Labs CBC & Chem 7: 10/04/18 18:39 10/04/18 18:39 Labs: Laboratory Last Values WBC 7.0 K/mm3 (4.5-11.0) 10/04/18 18:39 RBC 5.24 M/mm3 (3.65-5.03) H 10/04/18 18:39 Hgb 14.9 gm/dl (11.8-15.2) 10/04/18 18:39 Hct 45.2 % (35.5-45.6) 10/04/18 18:39 MCV 86 fl (84-94) 10/04/18 18:39 MCH 29 pg (28-32) 10/04/18 18:39 MCHC 33 % (32-34) 10/04/18 18:39 RDW 14.5 % (13.2-15.2) 10/04/18 18:39 Plt Count 313 K/mm3 (140-440) 10/04/18 18:39 Lymph % (Auto) 38.6 % (13.4-35.0) H 10/04/18 18:39 [place] % (Auto) 13.6 % (0.0-7.3) H 10/04/18 18:39 Eos % (Auto) 2.4 % (0.0-4.3) 10/04/18 18:39 Baso % (Auto) 1.4 % (0.0-1.8) 10/04/18 18:39 Lymph # 2.7 K/mm3 (1.2-5.4) 10/04/18 18:39 [place] # 0.9 K/mm3 (0.0-0.8) H 10/04/18 18:39 Eos # 0.2 K/mm3 (0.0-0.4) 10/04/18 18:39 Baso # 0.1 K/mm3 (0.0-0.1) 10/04/18 18:39 Seg Neutrophils % 44.0 % (40.0-70.0) 10/04/18 18:39 Seg Neutrophils # 3.1 K/mm3 (1.8-7.7) 10/04/18 18:39 PT 12.8 Sec. (12.2-14.9) 10/04/18 18:39 INR 0.99 (0.87-1.13) 10/04/18 18:39 APTT 28.1 Sec. (24.2-36.6) 10/04/18 18:39 289.07 ng/mlDDU (0-234) H 10/04/18 20:00 Sodium 130 mmol/L (137-145) L 10/04/18 18:39 Potassium 4.8 mmol/L (3.6-5.0) 10/04/18 18:39 Chloride 92.9 mmol/L (98-107) L 10/04/18 18:39 Carbon Dioxide 25 mmol/L (22-30) 10/04/18 18:39 17 mmol/L 10/04/18 18:39 BUN 16 mg/dL (9-20) 10/04/18 18:39 0.8 mg/dL (0.8-1.5) 10/04/18 18:39 Estimated GFR > 60 ml/min 10/04/18 18:39 20 % 10/04/18 18:39 Glucose 450 mg/dL (75-100) H 10/04/18 18:39 POC Glucose 295 (70-105) H 10/05/18 10:10 13.1 % (4-6) H 10/05/18 07:15 Calcium 9.8 mg/dL (8.4-10.2) 10/04/18 18:39 0.30 mg/dL (0.1-1.2) 10/04/18 18:39 AST 209 units/L (5-40) H 10/04/18 18:39 ALT 222 units/L (7-56) H 10/04/18 18:39 214 units/L (35-129) H 10/04/18 18:39 < 0.010 ng/mL (0.00-0.029) 10/04/18 18:39 < 0.010 ng/mL (0.00-0.029) 10/04/18 18:39 8.2 g/dL (6.3-8.2) 10/04/18 18:39 3.4 g/dL (3.9-5) L 10/04/18 18:39 0.7 % 10/04/18 18:39 99 units/L (13-60) H 10/04/18 18:39 Active Medications - Current Medications Current Medications: Generic Name Dose Route Start Last Admin Trade Name Freq PRN Reason Stop Dose Admin Acetaminophen 650 mg 10/05/18 02:47 Tylenol PO Q4H PRN Pain MILD(1-3)/Fever >100.5/ELMORE Dextrose 50 ml 10/05/18 01:38 D50w (25gm) Syringe IV PRN PRN Hypoglycemia Enoxaparin Sodium 40 mg 10/05/18 22:00 Lovenox SUB-Q QDAY@2200 NATALIE Famotidine 20 mg 10/05/18 10:46 Pepcid IV 10/05/18 11:30 ONCE NR Fentanyl 50 mcg 10/05/18 10:43 Sublimaze IV 10/05/18 16:00 ONCE PRN Pain , Severe (7-10) Hydromorphone HCl 0.5 mg 10/05/18 02:46 Dilaudid IV Q3H PRN Pain , Severe (7-10) Hydromorphone HCl 0.5 mg 10/05/18 10:43 Dilaudid IV 10/05/18 20:00 Q10MIN PRN Pain , Severe (7-10) Vancomycin HCl 1 gm in 250 mls @ 250 mls/hr 10/05/18 10:00 10/05/18 10:47 Vancomycin/Ns 1 Gm/250 Ml IV 250 mls/hr Q12HR NATALIE Administration Sodium Chloride 1,000 mls @ 100 mls/hr 10/05/18 11:00 Nacl 0.9% 1000 Ml IV DIRECT NATALIE Insulin Glargine 10 units 10/05/18 22:00 Lantus SUB-Q QHS [facility] Insulin Human Lispro 0 unit 10/05/18 07:30 10/05/18 10:14 Humalog SUB-Q 4 unit [facility] Administration Protocol Insulin Human Lispro 10 unit 10/05/18 11:30 Humalog SUB-Q ACHS [facility] Protocol Lisinopril 10 mg 10/05/18 10:00 Zestril PO QDAY [facility] Ondansetron HCl 4 mg 10/05/18 02:47 Zofran IV Q8H PRN Nausea And Vomiting Oxycodone/Acetaminophen 1 tab 10/05/18 02:46 10/05/18 03:26 Percocet 5/325 PO 1 tab Q6H PRN Administration Pain, Moderate (4-6) Sodium Chloride 10 ml 10/05/18 10:00 Sodium Chloride Flush Syringe 10 Ml IV BID NATALIE Sodium Chloride 10 ml 10/05/18 02:47 Sodium Chloride Flush Syringe 10 Ml IV PRN PRN LINE FLUSH
[2018-10-05] MEDS ORDERED: VERSED ONE (11:16)
[2018-10-05] MEDS ORDERED: NACL 0.9% IR ONE (11:45)
--- NOTE | 2018-10-05 12:27 | Post Operative Note ---
Date of procedure: 10/05/18 (dictation:[id number]) Pre-op diagnosis: back abscess Post-op diagnosis: same Findings: large amount of purulent fluid trapped in cavity Procedure: I&D of abscess cavity with washout Anesthesia: CATHERINEA Surgeon: CARLOS MENDEZ Estimated blood loss: minimal (<50cc) Pathology: list (cultures) Specimen disposition: to lab Condition: stable Disposition: PACU
[2018-10-05] MEDS ORDERED: HumuLIN R ONE (12:32)
[2018-10-05] MEDS: ZESTRIL PO SCH (13:14)
--- NOTE | 2018-10-05 13:22 | Operative Report ---
PREOPERATIVE DIAGNOSIS: Chronic back abscess. POSTOPERATIVE DIAGNOSIS: Chronic back abscess. PROCEDURES: 1. Incision and drainage of back abscess. 2. Washout of back abscess. ATTENDING PHYSICIAN: Dr. Clancy. ANESTHESIA: General. ESTIMATED BLOOD LOSS: Less than 50 mL. FINDINGS: Large amount of purulent fluid under pressure in the abscess cavity. SPECIMENS: Culture swabs were taken. DRAINS: A 1-inch [place]. COMPLICATIONS: None. DISPOSITION: Stable, transported to Recovery. INDICATIONS: This is a 53-year-old male who reports that he has had a back infection for at least 6 weeks. Approximately 2 weeks ago, he came to the Emergency Room, at which time an I and D was performed. The patient returned to the Emergency Room with complaints of increased drainage and pain in the back. The patient was also noted to be severely hyperglycemic. The patient was admitted and General Surgery was consulted. The patient was assessed to have a large infection on the back that would be better suited for evaluation and management in the operating room. Procedure, risks and benefits were explained to the patient. Risks included but were not limited to infection, bleeding, pain, injury to surrounding structures, possible need for further procedures in the future. The patient understood and consented. OPERATIVE NOTE: The patient was brought to the operating room. After adequate general anesthesia was established, the patient was placed in a right lateral decubitus position. Pressure points were padded. Sterile prep and drape was performed. Antibiotics were already being administered as previously scheduled. SCDs were in place. Timeout was called. I began by probing the wound. The wound was estimated to be about 9 cm in width and 5-6 cm in height. This was found by internal probing of the wound. I extended the original incision, so that I could insert a pulse lavage device to thoroughly wash out the wound. We suctioned out all the purulent material. Culture swabs were taken and then I used a pulse lavage to wash out the wound thoroughly with 3 liters of normal saline. Thereafter, I made a counter incision inferiorly as I thought that would help with the drainage. A 1-inch Cira was passed through, secured with 2-0 nylon sutures using a horizontal mattress stitch both above and below. Skin was cleaned and dried, dressings were placed. The patient tolerated the procedure well. There were no complications. All counts were correct at the end of the case. [facility]# [id number] DEREJE/BEN SOLO
--- NOTE | 2018-10-05 14:22 | Consultation ---
History of Present Illness - Reason for Consult Consult date: 10/05/18 Back abscess Requesting physician: REI MORTENSEN - History of Present Illness The patient is a 53-year-old man with diabetes mellitus, hypertension who initially had presented to the emergency room on 09/17/2018 with an upper back abscess. He underwent an I&D in the emergency room with packing and was discharged on oral antibiotics. He returned to the hospital emergency room on 10/04/2018 with ongoing purulence from his back. Apparently, his blood sugars were also difficult to control. He otherwise denies any fevers but states that he had been having chills. He was evaluated by Dr. Clacny and today, on 10/05/2018 underwent an I&D with washout in the operating room. He had a large amount of purulent fluid that was drained. Infectious diseases was consulted for antibiotic recommendations. Denies any IV drugs. Quit smoking. Review of Systems: General: no fevers, occasional chills HEENT: no new visual disturbance Respiratory: No cough, sputum, hemoptysis or shortness of breath Cardiovascular: No chest pain, syncope Gastrointestinal: No nausea, vomiting or diarrhea Genitourinary: No dysuria or hematuria Musculoskeletal: No new or worsening neck pain or back pain Neurologic: No headaches, seizures Hematologic: No easy bruising or bleeding Endocrine: No night sweats or acute weight loss. Uncontrolled DM. Skin: negative for rash, jaundice Psychiatric: No suicidal or homicidal ideation Past History Past Medical History: diabetes, hypertension Past Surgical History: Other (incision and drainage of upper back on 09/17) Social history: no significant social history. denies: smoking, alcohol abuse, prescription drug abuse Family history: diabetes Medications and Allergies Allergies Allergy/AdvReac Type Severity Reaction Status Date / Time No Known Allergies Allergy Verified 09/21/18 12:50 Home Medications Medication Instructions Recorded Confirmed Last Taken Type Sulfamethoxazole/Trimethoprim 1 each PO BID #20 tablet 09/17/18 Unknown Rx [Bactrim DS TAB] Active Meds: Active Medications Acetaminophen (Tylenol) 650 mg PO Q4H PRN PRN Reason: Pain MILD(1-3)/Fever >100.5/ELMORE Dextrose (D50w (25gm) Syringe) 50 ml IV PRN PRN PRN Reason: Hypoglycemia Enoxaparin Sodium (Lovenox) 40 mg SUB-Q QDAY@2200 NATALIE Fentanyl (Sublimaze) 50 mcg IV ONCE PRN PRN Reason: Pain , Severe (7-10) Stop: 10/05/18 16:00 Last Admin: 10/05/18 11:07 Dose: 50 mcg Documented by: Hydromorphone HCl (Dilaudid) 0.5 mg IV Q3H PRN PRN Reason: Pain , Severe (7-10) Hydromorphone HCl (Dilaudid) 0.5 mg IV Q10MIN PRN PRN Reason: Pain , Severe (7-10) Stop: 10/05/18 20:00 Last Admin: 10/05/18 12:55 Dose: 0.5 mg Documented by: Sodium Chloride (Nacl 0.9% 1000 Ml) 1,000 mls @ 100 mls/hr IV DIRECT NATALIE Vancomycin HCl 1,250 mg/ (Sodium Chloride) 275 mls @ 166.667 mls/hr IV Q12HR [facility] Insulin Glargine (Lantus) 10 units SUB-Q QHS [facility] Insulin Human Lispro (Humalog) 0 unit SUB-Q ACHS [facility]; Protocol Last Admin: 10/05/18 11:30 Dose: Not Given Documented by: Insulin Human Lispro (Humalog) 10 unit SUB-Q [facility]; Protocol Last Admin: 10/05/18 11:30 Dose: Not Given Documented by: Lisinopril (Zestril) 10 mg PO QDAY [facility] Ondansetron HCl (Zofran) 4 mg IV Q8H PRN PRN Reason: Nausea And Vomiting Oxycodone/Acetaminophen (Percocet 5/325) 1 tab PO Q6H PRN PRN Reason: Pain, Moderate (4-6) Last Admin: 10/05/18 03:26 Dose: 1 tab Documented by: Sodium Chloride (Sodium Chloride Flush Syringe 10 Ml) 10 ml IV BID [facility] Sodium Chloride (Sodium Chloride Flush Syringe 10 Ml) 10 ml IV PRN PRN PRN Reason: LINE FLUSH Physical Examination - Physical Exam Narrative exam: Physical Exam: Constitutional: Alert, cooperative. No acute distress Head, Ears, Nose: Normocephalic, atraumatic. External ears, nose normal Eyes: Conjunctivae/corneas clear. No icterus. No ptosis. Neck: Supple, no meningeal signs Oral: dentition poor, no thrush Cardiovascular: S1, S2 normal. Respiratory: Good air entry, clear to auscultation bilaterally GI: Soft, non-tender; bowel sounds normal. No peritoneal signs Musculoskeletal: No pedal edema, no cyanosis. Large upper back dressing present, with packing with surrounding erythema and tenderness Skin: No rash or abscess Hem/Lymphatic: No palpable cervical or supraclavicular nodes. No lymphangitis Psych: Mood ok. Affect normal Neurological: Awake, alert, oriented. No gross abnormality - Constitutional Vitals: Vital Signs Temp Pulse Resp BP Pulse Ox 97.3 F L 116 H 21 134/91 96 10/05/18 12:06 10/05/18 12:45 10/05/18 12:45 10/05/18 12:45 10/05/18 12:45 Temperature -Last 24 Hours Temperature 97.3 F Temperature 97.8 F Temperature 97.8 F Temperature 97.2 F Temperature 97.2 F Temperature 98.8 F Results - Labs CBC & Chem 7: 10/04/18 18:39 10/04/18 18:39 Labs: Abnormal lab results 10/04/18 10/04/18 10/04/18 Range/Units 18:39 18:39 20:00 RBC 5.24 H (3.65-5.03) M/mm3 Lymph % (Auto) 38.6 H (13.4-35.0) % [place] % (Auto) 13.6 H (0.0-7.3) % [place] # 0.9 H (0.0-0.8) K/mm3 D-Dimer 289.07 H (0-234) ng/mlDDU Sodium 130 L (137-145) mmol/L Chloride 92.9 L (98-107) mmol/L Glucose 450 H (75-100) mg/dL POC Glucose (70-105) Hemoglobin A1c (4-6) % AST 209 H (5-40) units/L ALT 222 H (7-56) units/L Alkaline Phosphatase 214 H (35-129) units/L Albumin 3.4 L (3.9-5) g/dL Lipase 99 H (13-60) units/L 10/05/18 10/05/18 10/05/18 Range/Units 07:15 07:57 10:10 RBC (3.65-5.03) M/mm3 Lymph % (Auto) (13.4-35.0) % [place] % (Auto) (0.0-7.3) % [place] # (0.0-0.8) K/mm3 D-Dimer (0-234) ng/mlDDU Sodium (137-145) mmol/L Chloride (98-107) mmol/L Glucose (75-100) mg/dL POC Glucose 280 H 295 H (70-105) Hemoglobin A1c 13.1 H (4-6) % AST (5-40) units/L ALT (7-56) units/L Alkaline Phosphatase (35-129) units/L Albumin (3.9-5) g/dL Lipase (13-60) units/L 10/05/18 Range/Units 12:24 RBC (3.65-5.03) M/mm3 Lymph % (Auto) (13.4-35.0) % [place] % (Auto) (0.0-7.3) % [place] # (0.0-0.8) K/mm3 D-Dimer (0-234) ng/mlDDU Sodium (137-145) mmol/L Chloride (98-107) mmol/L Glucose (75-100) mg/dL POC Glucose 242 H (70-105) Hemoglobin A1c (4-6) % AST (5-40) units/L ALT (7-56) units/L Alkaline Phosphatase (35-129) units/L Albumin (3.9-5) g/dL Lipase (13-60) units/L - Imaging and Cardiology Chest x-ray: report reviewed, image reviewed (X-ray shows no pneumonia.) CT scan - abdomen: report reviewed, image reviewed (CT abdomen and pelvis unremarkable except chronic-appearing L1 compression fracture) CT scan - chest: report reviewed, image reviewed (CT chest showed no pneumonia. Showed right upper back abscess in subcutaneous tissue.) Assessment and Plan Cultures: 09/17/2018 blood culture: No growth 09/17/2018 abscess culture: MSSA 10/04/2018 wound culture: In process 10/04/2018 blood culture: In process 10/05/2018 OR culture: In process A/P: 53-year-old man with diabetes mellitus, hypertension admitted with: 1) Large upper back abscess: initially had grown MSSA. Failed initial I&D and PO Abx, likely due to extent of disease and possibly inadequate source control in the setting of uncontrolled DM. Now s/p formal I&D on 10/05/2018 in the OR by Dr. Clancy. Treat with IV Cefazolin. Follow up final cultures. 2) DM-2 uncontrolled: Recommend tight glycemic control. 3) Transaminitis: recommend RUQ US. Although, appears to be chronic. Recs: d/chrissy Vancomycin started IV Cefazolin 2 gm q8 hrs follow up final cultures wound care Anticipate d/c on PO Abx, likely Keflex if no other organism grows D/W Dr. Mortensen. Da Lockhart MD, FACP [facility] ([facility] C: [phone] O: [phone] F: [phone]
[2018-10-05] MEDS: DILAUDID IV PRN ×3 (14:57→22:29)
[2018-10-05] MEDS: SODIUM CHLORIDE FLUSH SYRINGE 10 ML IV SCH ×2 (14:57→22:40)
[2018-10-05] MEDS ORDERED: ROBINUL ONE (16:00)
[2018-10-05] MEDS ORDERED: ZOFRAN ONE (16:00)
[2018-10-05] MEDS ORDERED: QUELICIN ONE (16:00)
[2018-10-05] MEDS ORDERED: XYLOCAINE MPF 2% ONE (16:00)
[2018-10-05] MEDS: ceFAZolin 2 GM in NACL 0.9% 100 ML IV SCH ×2 (16:42→23:46)
[2018-10-05] MEDS: NACL 0.9% 1000 ML 1,000 ML IV SCH (16:45)
--- NOTE | 2018-10-05 21:04 | Ultrasound Report ---
ULTRASOUND ABDOMEN, LIMITED (RIGHT UPPER QUADRANT) INDICATION: Transaminase elevation. Abdominal pain. COMPARISON: CT of the abdomen and pelvis performed yesterday. FINDINGS: PANCREAS: Suboptimally evaluated due to bowel gas. The visualized portions are unremarkable. LIVER: No significant abnormality. GALLBLADDER: Mildly distended without wall thickening or gallstones. BILE DUCTS: No significant abnormality. Common bile duct measures 1 mm. FREE FLUID: None. ADDITIONAL FINDINGS: Images of the right kidney are unremarkable. IMPRESSION: Distended gallbladder without visible gallstones. Signer Name: Robby Crabtree MD Signed: 10/05/2018 9:00 PM Workstation Name: [id number]
[2018-10-05] MEDS ORDERED: LANTUS SUB-Q SCH (22:00)
[2018-10-05] MEDS ORDERED: VANCOMYCIN 1,250 MG in NACL 0.9% 250ML 250 ML IV SCH (22:00)
[2018-10-05] MEDS: LOVENOX SUB-Q SCH (22:16)
[2018-10-06 00:56] LABS: Bilirubin,Urine NEG (Negative); Blood,Urine NEG (Negative); Color,Urine Yellow (Yellow); Hyaline Casts,Urine 1 /LPF; Mucus,Urine FEW /HPF; Protein,Urine <15 mg/dL mg/dL (Negative); Urobilinogen,Urine < 2.0 mg/dL (<2.0)
[2018-10-06] MEDS: ceFAZolin 2 GM in NACL 0.9% 100 ML IV SCH ×3 (05:50→21:19)
[2018-10-06] MEDS: DILAUDID IV PRN ×5 (06:31→21:21)
[2018-10-06 07:03] LABS: Alanine Aminotransferase 148 units/L (7-56); Albumin 2.6 g/dL (3.9-5); BUN/Creatinine Ratio 20; Blood Urea Nitrogen 12 mg/dL (9-20); Calcium 8.3 mg/dL (8.4-10.2); Hemolysis Index 11
[2018-10-06] MEDS ORDERED: LANTUS SUB-Q SCH (07:24)
[2018-10-06] MEDS ORDERED: LANTUS SUB-Q ONE (07:24)
--- NOTE | 2018-10-06 09:38 | Progress Note ---
Assessment and Plan Assessment and plan: 53-year-old man with history of hypertension and diabetes who presents with recurrent upper back pain related/abscess Upper back cellulitis/abscess -Cultures from previous ER visit on 09/17 reviewed, it was staph aureus which was resistant to penicillin and erythromycin -Patient was on vancomycin and ID saw him yesterday and changed to Cefazolin -Surgery evaluated the patient in did I/D with wash out Uncontrolled type 2 diabetes with persistent hyperglycemia, patient is noncompliant with treatment - Hemoglobin A1c was 13.2 - Sliding scale insulin and basal insulin, Accu-Chek, ADA diet, adjust insulin as needed - Patient was not on long acting insulin as an outpatient Hypertension - on lisinopril Dysuria and frequency -Urinalysis was done yesterday and was negative Generalized Weakness - PT consult placed DVT prophylaxis with Lovenox History Interval history: Patient was seen and evaluated this morning, Patient complains generalized weakness. Discussed about options of getting insulin. Hospitalist Physical - Physical exam Narrative exam: Not in cardiopulmonary distress. The patient appeared well nourished and normally developed. Vital signs as documented. Head exam is unremarkable. No scleral icterus . Neck is without jugular venous distension, thyromegaly, or carotid bruits. Lungs are clear to auscultation. Cardiac exam reveals regular rate and Rhythm. First and second heart sounds normal. No murmurs, rubs or gallops. Abdominal exam reveals normal bowel sounds, no masses, no organomegaly and no aortic enlargement. Extremities are nonedematous and both femoral and pedal pulses are normal. SKin; small erythema with a central small area draining abscess PHARMACIST ASSISTANT: Alert and oriented 3. No focal weakness. - Constitutional Vitals: Temp Pulse Resp BP Pulse Ox 98.2 F 97 H 18 123/80 95 10/06/18 05:49 10/06/18 05:49 10/06/18 06:31 10/06/18 05:49 10/06/18 05:49 General appearance: Present: no acute distress, well-nourished Results - Labs CBC & Chem 7: 10/04/18 18:39 10/06/18 06:21 Labs: Laboratory Last Values WBC 7.0 K/mm3 (4.5-11.0) 10/04/18 18:39 RBC 5.24 M/mm3 (3.65-5.03) H 10/04/18 18:39 Hgb 14.9 gm/dl (11.8-15.2) 10/04/18 18:39 Hct 45.2 % (35.5-45.6) 10/04/18 18:39 MCV 86 fl (84-94) 10/04/18 18:39 MCH 29 pg (28-32) 10/04/18 18:39 MCHC 33 % (32-34) 10/04/18 18:39 RDW 14.5 % (13.2-15.2) 10/04/18 18:39 Plt Count 313 K/mm3 (140-440) 10/04/18 18:39 Lymph % (Auto) 38.6 % (13.4-35.0) H 10/04/18 18:39 [place] % (Auto) 13.6 % (0.0-7.3) H 10/04/18 18:39 Eos % (Auto) 2.4 % (0.0-4.3) 10/04/18 18:39 Baso % (Auto) 1.4 % (0.0-1.8) 10/04/18 18:39 Lymph # 2.7 K/mm3 (1.2-5.4) 10/04/18 18:39 [place] # 0.9 K/mm3 (0.0-0.8) H 10/04/18 18:39 Eos # 0.2 K/mm3 (0.0-0.4) 10/04/18 18:39 Baso # 0.1 K/mm3 (0.0-0.1) 10/04/18 18:39 Seg Neutrophils % 44.0 % (40.0-70.0) 10/04/18 18:39 Seg Neutrophils # 3.1 K/mm3 (1.8-7.7) 10/04/18 18:39 PT 12.8 Sec. (12.2-14.9) 10/04/18 18:39 INR 0.99 (0.87-1.13) 10/04/18 18:39 APTT 28.1 Sec. (24.2-36.6) 10/04/18 18:39 289.07 ng/mlDDU (0-234) H 10/04/18 20:00 Sodium 132 mmol/L (137-145) L 10/06/18 06:21 Potassium 3.9 mmol/L (3.6-5.0) 10/06/18 06:21 Chloride 98.0 mmol/L (98-107) 10/06/18 06:21 Carbon Dioxide 24 mmol/L (22-30) 10/06/18 06:21 14 mmol/L 10/06/18 06:21 BUN 12 mg/dL (9-20) 10/06/18 06:21 0.6 mg/dL (0.8-1.5) L 10/06/18 06:21 Estimated GFR > 60 ml/min 10/06/18 06:21 20 % 10/06/18 06:21 Glucose 255 mg/dL (75-100) H 10/06/18 06:21 POC Glucose 240 (70-105) H 10/06/18 08:12 13.1 % (4-6) H 10/05/18 07:15 Calcium 8.3 mg/dL (8.4-10.2) L D 10/06/18 06:21 0.20 mg/dL (0.1-1.2) 10/06/18 06:21 AST 138 units/L (5-40) H 10/06/18 06:21 ALT 148 units/L (7-56) H 10/06/18 06:21 149 units/L (35-129) H 10/06/18 06:21 < 0.010 ng/mL (0.00-0.029) 10/04/18 18:39 < 0.010 ng/mL (0.00-0.029) 10/04/18 18:39 6.7 g/dL (6.3-8.2) 10/06/18 06:21 2.6 g/dL (3.9-5) L 10/06/18 06:21 0.6 % 10/06/18 06:21 99 units/L (13-60) H 10/04/18 18:39 Yellow (Yellow) 10/05/18 23:29 Clear (Clear) 10/05/18 23:29 5.0 (5.0-7.0) 10/05/18 23:29 Ur Specific [place] 1.024 (1.003-1.030) 10/05/18 23:29 <15 mg/dl mg/dL (Negative) 10/05/18 23:29 >=500 mg/dL (Negative) 10/05/18 23:29 Neg mg/dL (Negative) 10/05/18 23:29 Neg (Negative) 10/05/18 23:29 Neg (Negative) 10/05/18 23:29 Neg (Negative) 10/05/18 23:29 < 2.0 mg/dL (<2.0) 10/05/18 23:29 Ur Leukocyte Esterase Neg (Negative) 10/05/18 23:29 2.0 /HPF (0.0-6.0) 10/05/18 23:29 1.0 /HPF (0.0-6.0) 10/05/18 23:29 Hyaline Casts 1 /LPF 10/05/18 23:29 Few /HPF 10/05/18 23:29 Active Medications - Current Medications Current Medications: Generic Name Dose Route Start Last Admin Trade Name Freq PRN Reason Stop Dose Admin Acetaminophen 650 mg 10/05/18 02:47 Tylenol PO Q4H PRN Pain MILD(1-3)/Fever >100.5/ELMORE Dextrose 50 ml 10/05/18 01:38 D50w (25gm) Syringe IV PRN PRN Hypoglycemia Enoxaparin Sodium 40 mg 10/05/18 22:00 10/05/18 22:16 Lovenox SUB-Q 40 mg QDAY@2200 NATALIE Administration Hydromorphone HCl 0.5 mg 10/05/18 02:46 10/06/18 06:31 Dilaudid IV 0.5 mg Q3H PRN Administration Pain , Severe (7-10) Sodium Chloride 1,000 mls @ 100 mls/hr 10/05/18 11:00 10/05/18 16:45 Nacl 0.9% 1000 Ml IV 100 mls/hr DIRECT NATALIE Administration Cefazolin Sodium 2 gm/ Sodium 100 mls @ 200 mls/hr 10/05/18 15:00 10/06/18 05:50 Chloride IV 200 mls/hr Q8HR NATALIE Administration Protocol Insulin Glargine 20 units 10/06/18 07:24 Lantus SUB-Q QHS NATALIE Insulin Human Lispro 0 unit 10/05/18 07:30 10/05/18 22:14 Humalog SUB-Q 3 unit ACHS NATALIE Administration Protocol Insulin Human Lispro 10 unit 10/05/18 11:30 10/05/18 22:39 Humalog SUB-Q Not Given ACHS [facility] Protocol Lisinopril 10 mg 10/05/18 10:00 10/05/18 13:14 Zestril PO Not Given QDAY NATALIE Ondansetron HCl 4 mg 10/05/18 02:47 Zofran IV Q8H PRN Nausea And Vomiting Oxycodone/Acetaminophen 1 tab 10/05/18 02:46 10/05/18 03:26 Percocet 5/325 PO 1 tab Q6H PRN Administration Pain, Moderate (4-6) Sodium Chloride 10 ml 10/05/18 10:00 10/05/18 22:40 Sodium Chloride Flush Syringe 10 Ml IV Not Given BID NATALIE Sodium Chloride 10 ml 10/05/18 02:47 Sodium Chloride Flush Syringe 10 Ml IV PRN PRN LINE FLUSH Nutrition/Malnutrition Assess - Dietary Evaluation Nutrition/Malnutrition Findings: Nutrition Notes Start: 10/05/18 18:46 Freq: Status: Active Protocol: Document 10/05/18 18:46 RM (Rec: 10/05/18 18:53 RM [id number]) Nutrition Notes Need for Assessment generated from: MD Order Initial or Follow up Assessment Current Diagnosis Diabetes,Hypertension Other Pertinent Diagnosis Upper back abscess Current Diet Consistent CHO Labs/Tests A1c 13.1 Pertinent Medications Reviewed Height 5 ft 6 in Weight 69.6 kg [place] Body Weight (kg) 64.54 BMI 24.7 Subjective/Other Information Consulted for DM diet education. Pt was falling asleep during visit. Pt stated that his appetite is good. Noted lunch at bedside w/most eaten. Pt requested RD come back tomorrow to provide DM diet education. Percent of energy/protein needs met: 81%/80% Burn Absent Trauma Absent #1 Nutrition Diagnosis Increased nutrient needs ( specify in comment below) Comments: arginine, glutamine Etiology wound healing As Evidenced by Signs and Symptoms upper back abscess Is patient on ventilator? No Is Patient Ambulatory and/or Out of Bed Yes REE-([place]-. Jeor-ambulatory/OOB) [ 1935.375 [id number]] Calculation Used for Recommendations [facility] Additional Notes Protein Needs: 84-104g (1.2-1. 5g/kg) Fluid Needs: 1 ml/kcal Nutrition Intervention Change Diet Order: Continue current Add Supplement/Snack (indicate name/kcal Jonathan BID /protein ) Provides kCal: 190 Provides Protein (gm) 5 Goal #1 Continue to meet at least 75% of calorie and protein needs via PO intakes Goal #2 Jonathan tolerance Anticipated Discharge Needs: Consistent CHO diet Follow-Up By: 10/06/18 Additional Comments Follow for DM diet education, Jonathan intake
[2018-10-06] MEDS: HumaLOG SUB-Q SCH ×7 (09:47→21:36)
[2018-10-06] MEDS: SODIUM CHLORIDE FLUSH SYRINGE 10 ML IV SCH ×2 (09:49→22:39)
[2018-10-06] MEDS: ZESTRIL PO SCH (09:52)
--- NOTE | 2018-10-06 10:45 | Progress Note ---
Assessment and Plan - Patient Problems (1) Abscess of upper back excluding scapular region Current Visit: Yes Status: Acute Plan to address problem: Pt stable. s/p Back Abscess I&D, Washout - 10/05 - POD#1. Erythema improved. Dressing changed today. Daily dressing change. Ok to d/c home with f/u in 2 weeks. Please call with questions. (2) Elevated transaminase level Current Visit: Yes Status: Acute Plan to address problem: Pt stable. mild abdominal pain. LFTs are improving. US not impressive except for mild distention. No post-prandial sx's. CT shows large amount of stool in the right colon. Pt does report constipation with BMs once a week. He reports that they are dark. rec: 1) begin bowel regimen 2) check stool guaiac 3) If abdominal pain no better with bowel regimen, then consider HIDA scan. No surgery recommended for GB at this time. time=10min Subjective Date of service: 10/06/18 Patient Reports: Positive: no new complaints, feels better, other (mild abdominal pain. Has BMs once a week). Negative: nausea, vomiting Objective Vital Signs - 12hr 10/05/18 10/06/18 10/06/18 22:47 05:49 06:31 Temperature 98.4 F 98.2 F Pulse Rate 87 97 H Respiratory 18 20 18 Rate Blood Pressure 118/67 123/80 O2 Sat by Pulse 95 95 Oximetry 10/06/18 09:43 Temperature 98.5 F Pulse Rate 96 H Respiratory Rate Blood Pressure 120/72 O2 Sat by Pulse 96 Oximetry - General physical appearance no distress, no pain, other (has more energy today) - Respiratory normal expansion, normal respiratory effort - Abdomen soft, tender (mild in RUQ, more in RLQ), not distended, not guarding, not rigid - Integumentary no rash, no growths, no abnormal pigmentation - Psychiatric oriented to time, oriented to person, oriented to place, speech is normal, memory intact - Labs 10/04/18 18:39 10/06/18 06:21 Diabetes panel 10/06/18 Range/Units 06:21 Sodium 132 L (137-145) mmol/L Potassium 3.9 (3.6-5.0) mmol/L Chloride 98.0 (98-107) mmol/L Carbon Dioxide 24 (22-30) mmol/L BUN 12 (9-20) mg/dL Creatinine 0.6 L (0.8-1.5) mg/dL Glucose 255 H (75-100) mg/dL Calcium 8.3 L D (8.4-10.2) mg/dL AST 138 H (5-40) units/L ALT 148 H (7-56) units/L Alkaline Phosphatase 149 H (35-129) units/L Total Protein 6.7 (6.3-8.2) g/dL Albumin 2.6 L (3.9-5) g/dL Calcium panel 10/06/18 Range/Units 06:21 Calcium 8.3 L D (8.4-10.2) mg/dL Albumin 2.6 L (3.9-5) g/dL Pituitary panel 10/06/18 Range/Units 06:21 Sodium 132 L (137-145) mmol/L Potassium 3.9 (3.6-5.0) mmol/L Chloride 98.0 (98-107) mmol/L Carbon Dioxide 24 (22-30) mmol/L BUN 12 (9-20) mg/dL Creatinine 0.6 L (0.8-1.5) mg/dL Glucose 255 H (75-100) mg/dL Calcium 8.3 L D (8.4-10.2) mg/dL Adrenal panel 10/06/18 Range/Units 06:21 Sodium 132 L (137-145) mmol/L Potassium 3.9 (3.6-5.0) mmol/L Chloride 98.0 (98-107) mmol/L Carbon Dioxide 24 (22-30) mmol/L BUN 12 (9-20) mg/dL Creatinine 0.6 L (0.8-1.5) mg/dL Glucose 255 H (75-100) mg/dL Calcium 8.3 L D (8.4-10.2) mg/dL Total Bilirubin 0.20 (0.1-1.2) mg/dL AST 138 H (5-40) units/L ALT 148 H (7-56) units/L Alkaline Phosphatase 149 H (35-129) units/L Total Protein 6.7 (6.3-8.2) g/dL Albumin 2.6 L (3.9-5) g/dL
[2018-10-06] MEDS: DULCOLAX PO SCH (12:46)
[2018-10-06] MEDS: SENOKOT PO SCH (12:46)
[2018-10-06] MEDS: NACL 0.9% 1000 ML 1,000 ML IV SCH (13:09)
[2018-10-06] MEDS: LOVENOX SUB-Q SCH (21:43)
[2018-10-07] MEDS: NACL 0.9% 1000 ML 1,000 ML IV SCH (00:04)
[2018-10-07] MEDS ORDERED: BENADRYL PO PRN (00:06)
[2018-10-07] MEDS: DILAUDID IV PRN ×4 (00:32→14:26)
[2018-10-07] MEDS: SENOKOT PO SCH ×2 (00:39→13:39)
[2018-10-07] MEDS: ceFAZolin 2 GM in NACL 0.9% 100 ML IV SCH (05:03)
[2018-10-07 08:12] LABS: Alanine Aminotransferase 111 units/L (7-56); Albumin 2.5 g/dL (3.9-5); BUN/Creatinine Ratio 20; Blood Urea Nitrogen 10 mg/dL (9-20); Calcium 8.2 mg/dL (8.4-10.2); Hemolysis Index 30
[2018-10-07] MEDS: HumaLOG SUB-Q SCH ×5 (08:45→13:40)
--- NOTE | 2018-10-07 09:26 | Progress Note ---
Assessment and Plan Cultures: 09/17/2018 blood culture: No growth 09/17/2018 abscess culture: MSSA 10/04/2018 blood culture: no growth 10/05/2018 OR culture: Staph Aureus A/P: 53-year-old man with diabetes mellitus, hypertension admitted with: 1) Large upper back abscess: initially had grown MSSA. Failed initial I&D and PO Abx, likely due to extent of disease and possibly inadequate source control in the setting of uncontrolled DM. Now s/p formal I&D on 10/05/2018 in the OR by Dr. Clancy. Treat with IV Cefazolin. Follow up final cultures. 2) DM-2 uncontrolled: Recommend tight glycemic control. 3) Transaminitis: RUQ US shows no significant abnormality. Distended gallbladder w/o gallstones. Recs: continue IV Cefazolin 2 gm q8 hrs wound care Anticipate discharge on Keflex 500 mg PO every 6 hours for 7 days Follow-up wound care outpatient ID Clinic f/u in 2 weeks (sent to heavy repairer) D/W Dr. Yasmany Quezada, ELECTRO MECH[employer]ICAL SOLAR TECHNICIAN [facility] M: [id number] O:[phone] Subjective Interval history: Patient seen and examined. Reports no pain or generalized weakness. No fevers. Objective - Exam Narrative Exam: Constitutional: Alert, cooperative. No acute distress Head, Ears, Nose: Normocephalic, atraumatic. External ears, nose normal Eyes: Conjunctivae/corneas clear. No icterus. No ptosis. Neck: Supple, no meningeal signs Oral: dentition poor, no thrush Cardiovascular: S1, S2 normal. Respiratory: Good air entry, clear to auscultation bilaterally GI: Soft, non-tender; bowel sounds normal. No peritoneal signs Musculoskeletal: No pedal edema, no cyanosis. Large upper back dressing present, with packing with surrounding erythema and tenderness Skin: No rash or abscess Hem/Lymphatic: No palpable cervical or supraclavicular nodes. No lymphangitis Psych: Mood ok. Affect normal Neurological: Awake, alert, oriented. No gross abnormality - Constitutional Vitals: Vital Signs Temp Pulse Resp BP Pulse Ox 98.0 F 77 18 136/75 100 10/07/18 05:53 10/07/18 05:53 10/07/18 05:53 10/07/18 05:53 10/07/18 05:53 Temperature -Last 24 Hours Temperature 98.0 F Temperature 98.0 F Temperature 98.6 F Temperature 98.6 F Temperature 98.7 F Temperature 98.5 F - Labs CBC & Chem 7: 10/04/18 18:39 10/07/18 06:45 Labs: Abnormal lab results 10/06/18 10/06/18 10/06/18 Range/Units 11:39 16:36 21:15 Sodium (137-145) mmol/L Creatinine (0.8-1.5) mg/dL Glucose (75-100) mg/dL POC Glucose 333 H 147 H 152 H (70-105) Calcium (8.4-10.2) mg/dL AST (5-40) units/L ALT (7-56) units/L Alkaline Phosphatase (35-129) units/L Albumin (3.9-5) g/dL 10/07/18 10/07/18 Range/Units 06:45 08:45 Sodium 132 L (137-145) mmol/L Creatinine 0.5 L (0.8-1.5) mg/dL Glucose 208 H (75-100) mg/dL POC Glucose 163 H (70-105) Calcium 8.2 L (8.4-10.2) mg/dL AST 133 H (5-40) units/L ALT 111 H (7-56) units/L Alkaline Phosphatase 131 H (35-129) units/L Albumin 2.5 L (3.9-5) g/dL
[2018-10-07] MEDS: DULCOLAX PO SCH (09:49)
[2018-10-07] MEDS: SODIUM CHLORIDE FLUSH SYRINGE 10 ML IV SCH (09:50)
[2018-10-07] MEDS: ZESTRIL PO SCH (09:52)
--- NOTE | 2018-10-07 10:51 | Discharge Summary ---
Providers - Providers Date of Admission: 10/04/18 23:24 Attending physician: SUNNY CORBIN MD 10/04/18 23:35 Consult to Physician [CONS] Stat Comment: Dr. George spoke with Dr. Clancy @ [id number] Consulting Provider: CARLOS CLANCY Physician Instructions: Reason For Exam: UPPER BACK ABSCESS 10/05/18 01:38 Consult to Dietitian/Nutrition [CONS] Routine Physician Instructions: Reason For Exam: Reason for Consult: Diet education 10/05/18 02:43 Consult to Physician [CONS] Routine Comment: Consulting Provider: GUERO VERA Physician Instructions: Reason For Exam: back abscess 10/06/18 08:59 Physical Therapy Evaluation and Treat [CONS] Routine Comment: Reason For Exam: weakness 10/06/18 20:46 Consult to Wound/ET Nurse [CONS] Routine Reason For Exam: wound eval Primary care physician: [facility], Hospitalization Reason for admission: abscess on the upper back, uncontrolled diabetes mellitus Condition: Stable Procedures: I/d and wash out Hospital course: 53-year-old man with history of hypertension and diabetes. The patient does not have insurance, has trouble getting his medications at times. He was seen in the ER on September 17 for a upper back abscess. He had an I&D performed in the ER he was sent home on some oral antibiotics. He returns now with increased purulent drainage from his back, he has a small wound on his upper back and he has been draining copious amounts of pus, pus has been foul smelling. The drainage has been so much that he has been off his clothes his bed sheets and everywhere he has sat only down on. His mother is at the bedside and stated that he was unable to manage the drainage with dressings. He also notes that his sugars out of control, but the patient admits that his sugars are never really well controlled. He is also complaining of pain and swelling to the skin surrounding the wound on his back. Patient was admitted to the floor he was treated with IV antibiotic and general surgery was consulted and did incision/drainage and washout. Culture was taken and showed MSSA. ID was consulted and recommend to discharge him with Keflex for 7 days. Patient has diabetes mellitus which was uncontrolled and hemoglobin A1c was 13.2 and he was only taking sliding scale insulin. Patient was given a script for insulin 70/30 and diabetic supplies were given and discharged home. Patient is hemodynamically stable at the time of discharge. Patient was evaluated face to face before discharge. Disposition: [id number] TO HOME OR SELFCARE Time spent for discharge: 32 minutes - Discharge Diagnoses (1) Abscess of upper back excluding scapular region Status: Acute (2) Elevated transaminase level Status: Acute (3) Hyperglycemia due to type 2 diabetes mellitus Status: Acute Qualifiers: Diabetes mellitus nursing home insulin use: with nursing home use Qualified Code(s): E11.65 - Type 2 diabetes mellitus with hyperglycemia; Z79.4 - residential (current) use of insulin Core Measure Documentation - Palliative Care Palliative Care/ Comfort Measures: Not Applicable - Core Measures Any of the following diagnoses?: none Exam - Physical Exam Narrative exam: Not in cardiopulmonary distress. The patient appeared well nourished and normally developed. Vital signs as documented. Head exam is unremarkable. No scleral icterus . Neck is without jugular venous distension, thyromegaly, or carotid bruits. Lungs are clear to auscultation. Cardiac exam reveals regular rate and Rhythm. First and second heart sounds normal. No murmurs, rubs or gallops. Abdominal exam reveals normal bowel sounds, no masses, no organomegaly and no aortic enlargement. Extremities are nonedematous and both femoral and pedal pulses are normal. SKin; clean dressing [employer]: Alert and oriented 3. No focal weakness. - Constitutional Vitals: Temp Pulse Resp BP Pulse Ox 98.0 F 90 18 121/80 100 10/07/18 05:53 10/07/18 09:52 10/07/18 05:53 10/07/18 09:52 10/07/18 05:53 Plan Activity: no restrictions Weight Bearing Status: Full Weight Bearing Diet: diabetic Follow up with: MICAH MOTT MD [Primary Care Provider] - 3-5 Days Prescriptions: Diabetic Supplies,Miscell [Enlite Serter] 1 each MC BID #1 miscell cephALEXin [Keflex] 500 mg PO Q6HR #28 capsule Insulin NPH/Regular [NovoLIN 70/30] 15 unit SQ BIDDIAB #2 vial
[2018-10-07 12:54] VITALS: BP 133/83
--- NOTE | 2018-10-07 14:45 | Progress Note ---
Assessment and Plan - Patient Problems (1) Abscess of upper back excluding scapular region Current Visit: Yes Status: Acute Plan to address problem: Pt stable. s/p Back Abscess I&D, Washout - 10/05 - POD#2. Erythema improved. Daily dressing change. Ok to d/c home with f/u in 2 weeks. Please call with questions. (2) Elevated transaminase level Current Visit: Yes Status: Acute Plan to address problem: Pt stable. mild abdominal pain. +BM. US not impressive except for mild distention. No post-prandial sx's. CT shows large amount of stool in the right colon. Pt does report constipation with BMs once a week. He reports that they are dark. rec: 1) cont bowel regimen recommended that he take metamucil/citracel on regular basis. Explained how to use to patient and mother. 2) check stool guaiac 3) If abdominal pain no better with bowel regimen, then consider HIDA scan. No surgery recommended for GB at this time. time=10min Subjective Date of service: 10/07/18 Patient Reports: Positive: still having pain (in abdomen. Only had a small bowel movement.). Negative: nausea, vomiting Objective Vital Signs - 12hr 10/07/18 10/07/18 10/07/18 03:28 05:53 09:52 Temperature 98.0 F Pulse Rate 77 90 Respiratory 17 18 Rate Blood Pressure 136/75 121/80 O2 Sat by Pulse 100 Oximetry 10/07/18 12:51 Temperature 98.8 F Pulse Rate 69 Respiratory 18 Rate Blood Pressure 133/83 O2 Sat by Pulse 96 Oximetry - General physical appearance no distress, no pain, other (looks better) - Eyes normal occular movement - Respiratory normal expansion, normal respiratory effort - Abdomen soft, not distended, not guarding, not rigid - Integumentary no rash, no growths, no abnormal pigmentation - Psychiatric oriented to time, oriented to person, oriented to place, speech is normal, memory intact - Labs 10/04/18 18:39 10/07/18 06:45 Diabetes panel 10/07/18 Range/Units 06:45 Sodium 132 L (137-145) mmol/L Potassium 4.1 (3.6-5.0) mmol/L Chloride 98.6 (98-107) mmol/L Carbon Dioxide 24 (22-30) mmol/L BUN 10 (9-20) mg/dL Creatinine 0.5 L (0.8-1.5) mg/dL Glucose 208 H (75-100) mg/dL Calcium 8.2 L (8.4-10.2) mg/dL AST 133 H (5-40) units/L ALT 111 H (7-56) units/L Alkaline Phosphatase 131 H (35-129) units/L Total Protein 6.3 (6.3-8.2) g/dL Albumin 2.5 L (3.9-5) g/dL Calcium panel 10/07/18 Range/Units 06:45 Calcium 8.2 L (8.4-10.2) mg/dL Albumin 2.5 L (3.9-5) g/dL Pituitary panel 10/07/18 Range/Units 06:45 Sodium 132 L (137-145) mmol/L Potassium 4.1 (3.6-5.0) mmol/L Chloride 98.6 (98-107) mmol/L Carbon Dioxide 24 (22-30) mmol/L BUN 10 (9-20) mg/dL Creatinine 0.5 L (0.8-1.5) mg/dL Glucose 208 H (75-100) mg/dL Calcium 8.2 L (8.4-10.2) mg/dL Adrenal panel 10/07/18 Range/Units 06:45 Sodium 132 L (137-145) mmol/L Potassium 4.1 (3.6-5.0) mmol/L Chloride 98.6 (98-107) mmol/L Carbon Dioxide 24 (22-30) mmol/L BUN 10 (9-20) mg/dL Creatinine 0.5 L (0.8-1.5) mg/dL Glucose 208 H (75-100) mg/dL Calcium 8.2 L (8.4-10.2) mg/dL Total Bilirubin 0.20 (0.1-1.2) mg/dL AST 133 H (5-40) units/L ALT 111 H (7-56) units/L Alkaline Phosphatase 131 H (35-129) units/L Total Protein 6.3 (6.3-8.2) g/dL Albumin 2.5 L (3.9-5) g/dL
== END 2018-10-07 16:00 | disposition home health service (06) | DRG 603 ==
LOC: ED 17:02 → 3A 23:24
PROVIDERS: ADMIT Internal Medicine; ATTEND Internal Medicine
PROC: 0W9K0ZZ Drainage of Upper Back, Open Approach (ICD-10-PCS; principal; 2018-10-05)
DX: L02.212 Cutaneous abscess of back [any part, except buttock and flank] (principal); E11.65 Type 2 diabetes mellitus with hyperglycemia; I10 Essential (primary) hypertension; L03.312 Cellulitis of back [any part except buttock and flank]; R74.0 Nonspecific elevation of levels of transaminase and lactic acid dehydrogenase [LDH]; Z83.3 Family history of diabetes mellitus; Z79.4 Long term (current) use of insulin; Z87.891 Personal history of nicotine dependence
CPT/HCPCS: 36415; 71046; 71275; 74177; 76705; 80053; 81001; 82962; 83036; 83690; 84484; 85025; 85379; 85610; 85730; 87040; 87076; 87116; 87186; 93005; 93010; 99406; G0378; J0330; J0690; J1170; J1650; J1815; J2250; J2405; J2704; J3010; J3370; J7030; J7050; Q9967

== ENCOUNTER 2018-11-09 10:23 | Emergency (ER) | payer OTHER, SELFPAY ==
--- NOTE | 2018-11-09 11:32 | Emergency Department Report ---
Blank Doc - Documentation Documentation: This is a 53-year-old male that presents generlized pain, weakness, and uncont rolled hyperglyemia/. Stated also has packing removal. This initial assessment/diagnostic orders/clinical plan/treatment(s) is/are subject to change based on patient's health status, clinical progression and re- assessment by fellow clinical providers in the ED. Further treatment and workup at subsequent clinical providers discretion. Patient/guardians urged not to elope from the ED as their condition may be serious if not clinically assessed and managed. Initial orders include: 1- Patient sent to MAIN ED for further evaluation and treatment 2- labs
[2018-11-09 12:01] LABS: Basophils # (Auto) 0.1 K/mm3 (0.0-0.1); Basophils % (Auto) 1.4 % (0.0-1.8); Eosinophils # (Auto) 0.3 K/mm3 (0.0-0.4); Eosinophils % (Auto) 3.8 % (0.0-4.3); Hematocrit 43.9 % (35.5-45.6); Hemoglobin 14.8 gm/dl (11.8-15.2); Lymphocytes # (Auto) 3.1 K/mm3 (1.2-5.4); Lymphocytes % (Auto) 33.8 % (13.4-35.0); Mean Corpuscular HGB Conc 34 % (32-34); Mean Corpuscular Volume 87 fl (84-94); Monocytes # (Auto) 0.7 K/mm3 (0.0-0.8); Monocytes % (Auto) 7.2 % (0.0-7.3); Platelet Count 221 K/mm3 (140-440); Red Blood Count 5.04 M/mm3 (3.65-5.03); Red Cell Distribution Width 14.3 % (13.2-15.2)
[2018-11-09 12:56] LABS: BUN/Creatinine Ratio 18; Blood Urea Nitrogen 14 mg/dL (9-20); Calcium 10.3 mg/dL (8.4-10.2)
[2018-11-09 12:57] LABS: Alanine Aminotransferase 95 units/L (7-56); Albumin 3.9 g/dL (3.9-5); Hemolysis Index 32
[2018-11-09] MEDS ORDERED: VANCOMYCIN/NS 1 GM/250 ML 1 GM/250 ML BAG IV ONE (13:53)
[2018-11-09] MEDS ORDERED: NACL 0.9% 1000 ML 1,000 ML IV ONE (13:54)
--- NOTE | 2018-11-09 14:26 | XRay Report ---
CHEST 2 VIEWS INDICATION: hypertension. COMPARISON: 10/04/2018 FINDINGS: Support devices: None. Heart: Within normal limits. Lungs/pleura: No acute air space or interstitial disease. No pneumothorax. Additional findings: None. IMPRESSION: No acute findings. No change since 10/04/2018. Signer Name: Enrique Seaman Jr, MD Signed: 11/09/2018 2:21 PM Workstation Name: [id number]
--- NOTE | 2018-11-09 14:36 | Emergency Department Report ---
- General Chief complaint: Skin/Abscess/Foreign Body Stated complaint: BLOOD SUGAR HIGH Time Seen by Provider: 11/09/18 11:30 Source: patient Mode of arrival: Ambulatory Limitations: No Limitations - History of Present Illness Initial comments: Patient reports that he was evaluated for an abscess approximately 2 months ago where he went for surgery and a drain catheter was placed through his skin between his shoulder blades to drain the abscess. Patient reports non-compliant with follow up since. Does not remember the surgeon that performed the procedure but reports that it was done at [facility] MD complaint: rash, other (hyperglycemia) -: Gradual, month(s) Location: back Severity: mild Severity scale (0 -10): 2 Quality: aching Consistency: constant Improves with: none Worsens with: none Context: other (noncompliant surgical drain removal follow up) Associated symptoms: other (elevated home blood sugar today and pain) - Related Data Previous Rx's Medication Instructions Recorded Last Taken Type Diabetic Supplies,Miscell [Enlite 1 each MC BID #1 miscell 10/07/18 Unknown Rx Serter] Insulin NPH/Regular [NovoLIN 70/30] 15 unit SQ BIDDIAB #2 vial 10/07/18 Unknown Rx cephALEXin [Keflex] 500 mg PO Q6HR #28 capsule 10/07/18 Unknown Rx oxyCODONE /ACETAMINOPHEN [Percocet 1 tab PO Q6HR PRN #14 tablet 10/07/18 Unknown Rx 5/325] Clindamycin [Clindamycin CAP] 300 mg PO Q6H 10 Days #40 capsule 11/09/18 Unknown Rx Ibuprofen [Motrin 600 MG tab] 600 mg PO Q6H PRN #24 tablet 11/09/18 Unknown Rx Allergies Allergy/AdvReac Type Severity Reaction Status Date / Time No Known Allergies Allergy Verified 09/21/18 12:50 Abscess Boil HPI - HPI Chief Complaint: Skin/Abscess/Foreign Body Stated Complaint: BLOOD SUGAR HIGH Time Seen by Provider: 11/09/18 11:30 Home Medications: Previous Rx's Medication Instructions Recorded Last Taken Type Diabetic Supplies,Miscell [Enlite 1 each MC BID #1 miscell 10/07/18 Unknown Rx Serter] Insulin NPH/Regular [NovoLIN 70/30] 15 unit SQ BIDDIAB #2 vial 10/07/18 Unknown Rx cephALEXin [Keflex] 500 mg PO Q6HR #28 capsule 10/07/18 Unknown Rx oxyCODONE /ACETAMINOPHEN [Percocet 1 tab PO Q6HR PRN #14 tablet 10/07/18 Unknown Rx 5/325] Clindamycin [Clindamycin CAP] 300 mg PO Q6H 10 Days #40 capsule 11/09/18 Unknown Rx Ibuprofen [Motrin 600 MG tab] 600 mg PO Q6H PRN #24 tablet 11/09/18 Unknown Rx Allergies/Adverse Reactions: Allergies Allergy/AdvReac Type Severity Reaction Status Date / Time No Known Allergies Allergy Verified 09/21/18 12:50 ED Review of Systems ROS: Stated complaint: BLOOD SUGAR HIGH Other details as noted in HPI Other: GENERAL: No weight change, fatigue, weakness, fever, chills, or night sweats SKIN: Erythema and pain and discharge out of the surgical drain in his back HEAD: No trauma, headache, or visual changes EYES: No blurriness, tearing, itching, acute visual loss, conjunctival discoloration, or scleral icterus EARS: No hearing loss, tinnitus, vertigo, or earache NOSE: No rhinorrhea, stuffiness, sneezing, itching, or epistaxis MOUTH: No bleeding gums, hoarseness, sore throat, or swelling CARDIAC: No new murmur, chest pain, palpitations, dyspnea on exertion, orthopnea, PND, or edema RESPIRATORY: No shortness of breath, wheeze, cough, sputum production, hemoptysis, pneumonia, asthma, bronchitis, or emphysema GI: No change in appetite, nausea, vomiting, dysphagia, change in bowel frequency, diarrhea, constipation, bleeding, hematemesis, melena, hematochezia, or abdominal pain URINARY: No frequency, urgency, polyuria, dysuria, hematuria, or incontinence MUSCULOSKELETAL: Back Pain. No muscle weakness, joint stiffness, decrease in range of motion NEUROLOGIC: No loss of sensation, numbness, tingling, tremors, weakness, par alysis, seizures HEMATOLOGIC: No anemia, easy bruising, bleeding, petechiae, or purpura ENDOCRINE: No hot or cold intolerance, sweating, polyuria, polydipsia or, polyphagia no thyroid problems PSYCHIATRIC: No change in mood, no anxiety, no depression ED Past Medical Hx - Past Medical History Previous Medical History?: Yes Hx Hypertension: Yes (noncompliant with antihypertensives) Hx Heart Attack/AMI: No Hx Congestive Heart Failure: No Hx Diabetes: Yes Hx Liver Disease: No Hx Renal Disease: No Hx Asthma: No Hx COPD: No - Social History Smoking Status: Current Every Day Smoker Substance Use Type: None - Medications Home Medications: Home Medications Medication Instructions Recorded Confirmed Last Taken Type Diabetic Supplies,Miscell [Enlite 1 each MC BID #1 miscell 10/07/18 Unknown Rx Serter] Insulin NPH/Regular [NovoLIN 70/30] 15 unit SQ BIDDIAB #2 vial 10/07/18 Unknown Rx cephALEXin [Keflex] 500 mg PO Q6HR #28 capsule 10/07/18 Unknown Rx oxyCODONE /ACETAMINOPHEN [Percocet 1 tab PO Q6HR PRN #14 tablet 10/07/18 Unknown Rx 5/325] Clindamycin [Clindamycin CAP] 300 mg PO Q6H 10 Days #40 capsule 11/09/18 Unknown Rx Ibuprofen [Motrin 600 MG tab] 600 mg PO Q6H PRN #24 tablet 11/09/18 Unknown Rx ED Physical Exam - General Limitations: No Limitations - Other Other exam information: GENERAL: Patient in no acute distress HEAD: Normocephalic, atraumatic EYES: PERRLA, EOM intact, no scleral icterus, no papilledema, no conjunctival hemorrhage, visual renae and acuity wnl NOSE: No tenderness, discharge, sinus tenderness MOUTH: No erythema, bleeding, exudate HEART: Regular rate and rhythm, no murmur, S1-S2 are auscultated, pulses are symmetric LUNGS: No wheezing, rales, rhonchi, bilateral breath sounds ABDOMEN: Normal bowel sounds, no tenderness, no rebound, no guarding, no masses, no CVA tenderness MUSCULOSKELETAL: Normal joint range of motion, no redness, no swelling, no tenderness NEUROLOGIC: GCS 15, Alert and Oriented x3, Cranial nerves intact, normal sensation, normal strength, no cerebellar deficit SKIN: Surgical drain placed through the skin between his shoulder blades with sutures intact. Mild pustulous discharge from the site. Erythema surrounding, and warmth and tenderness to the surrounding skin. ED Course Vital Signs 11/09/18 11/09/18 11/09/18 10:45 14:54 14:59 Temperature 98.4 F Pulse Rate 103 H Respiratory 16 17 Rate Blood Pressure 141/85 Blood Pressure [Left] O2 Sat by Pulse 100 Oximetry 11/09/18 16:28 Temperature 98.4 F Pulse Rate 90 Respiratory 16 Rate Blood Pressure Blood Pressure 162/102 [Left] O2 Sat by Pulse 99 Oximetry ED Medical Decision Making - Lab Data Result diagrams: 11/09/18 11:44 11/09/18 11:44 Laboratory Results - last 24 hr 11/09/18 11/09/18 11/09/18 10:40 11:44 11:44 WBC 9.2 RBC 5.04 H Hgb 14.8 Hct 43.9 MCV 87 MCH 29 MCHC 34 RDW 14.3 Plt Count 221 Lymph % (Auto) 33.8 [place] % (Auto) 7.2 Eos % (Auto) 3.8 Baso % (Auto) 1.4 Lymph # 3.1 [place] # 0.7 Eos # 0.3 Baso # 0.1 Seg Neutrophils % 53.8 Seg Neutrophils # 4.9 PT INR APTT VBG pH Sodium 134 L Potassium 4.3 Chloride 94.1 L Carbon Dioxide 26 Anion Gap 18 BUN 14 Creatinine 0.8 Estimated GFR > 60 BUN/Creatinine Ratio 18 Glucose 432 H POC Glucose 333 H Lactic Acid Calcium 10.3 H Total Bilirubin 0.20 AST 70 H ALT 95 H Alkaline Phosphatase 121 Total Protein 8.7 H Albumin 3.9 Albumin/Globulin Ratio 0.8 11/09/18 11/09/18 11/09/18 11:44 14:16 14:16 WBC RBC Hgb Hct MCV MCH MCHC RDW Plt Count Lymph % (Auto) [place] % (Auto) Eos % (Auto) Baso % (Auto) Lymph # [place] # Eos # Baso # Seg Neutrophils % Seg Neutrophils # PT 12.5 INR 0.96 APTT 26.8 VBG pH 7.372 Sodium Potassium Chloride Carbon Dioxide Anion Gap BUN Creatinine Estimated GFR BUN/Creatinine Ratio Glucose POC Glucose Lactic Acid 1.30 Calcium Total Bilirubin AST ALT Alkaline Phosphatase Total Protein Albumin Albumin/Globulin Ratio - Radiology Data Radiology results: report reviewed - Medical Decision Making At 1516 patient comfortable. Updated with results. Hospitalists request admit to surgery. Dr. Mendez general surgery call back updated. Reports patient non- compliant with follow up. Reports patient culture showed MSSA and patient was discharged on Keflex. Reports patient had primrose drain placed approximately 10/04. Reports patient can be discharged with outpatient follow up tomorrow in the office. Agrees with Clindamycin rx. Patient updated return if worsening. Critical care attestation.: If time is entered above; I have spent that time in minutes in the direct care of this critically ill patient, excluding procedure time. ED Disposition Clinical Impression: Hyperglycemia Cellulitis Qualifiers: Site of cellulitis: unspecified site Qualified Code(s): L03.90 - Cellulitis, unspecified Disposition: - TO HOME OR SELFCARE Is pt being admited?: No Condition: Stable Instructions: Cellulitis (ED), Diabetic Hyperglycemia (ED) Prescriptions: Clindamycin [Clindamycin CAP] 300 mg PO Q6H 10 Days #40 capsule Ibuprofen [Motrin 600 MG tab] 600 mg PO Q6H PRN #24 tablet PRN Reason: Pain Referrals: MICAH MOTT MD [Primary Care Provider] - 2-3 Days CARLOS MENDEZ MD [Staff Physician] - 24 Hours Time of Disposition: 15:19
[2018-11-09 14:40] LABS: INR 0.96 (0.87-1.13)
[2018-11-09 14:42] LABS: Partial Thromboplastin Time 26.8 Sec. (24.2-36.6)
[2018-11-09] MEDS ORDERED: VANCOMYCIN 1,500 MG in NACL 0.9% 500 ML 500 ML IV ONE (14:45)
[2018-11-09] MEDS ORDERED: TORADOL IV ONE (14:53)
[2018-11-09 16:30] VITALS: BP 162/102
[2018-11-09] MEDS ORDERED: TYLENOL PO ONE (16:52)
== END 2018-11-09 17:27 | disposition home or self-care (01) ==
LOC: ED 10:23
DX: E11.65 Type 2 diabetes mellitus with hyperglycemia (principal); L03.90 Cellulitis, unspecified; I10 Essential (primary) hypertension; F17.200 Nicotine dependence, unspecified, uncomplicated; Z79.899 Other long term (current) drug therapy
CPT/HCPCS: 36415; 71046; 80053; 82140; 82805; 82962; 85025; 85610; 85730; 87040; 96365; 96375; 99284; J1885; J3370; J7030; J7040